=== PATIENT | female | born 1960 | race Caucasian/White ===

== ENCOUNTER 2018-04-08 18:56 | Inpatient (IN) | payer MEDICAID ==
[~2018-04-08] VITALS: Ht 165.1 cm; Wt 101.3 kg
[2018-04-08 19:09] VITALS: BP 186/85; PULSE 69; RESP 20; TEMP 98.5; O2SAT 100
--- NOTE | 2018-04-08 19:23 | PD ---
HPI Chief Complaint: Skin Problem Time Seen by Provider: 19:17 Travel History International Travel<30 days: No Contact w/Intl Traveler<30days: No Traveled to known affect area: No History of Present Illness HPI 58-year-old female presents for evaluation of painful wounds bilateral lower extremities. She reports that 8 months ago she remembers being bit by ants on her right lower leg. Shortly thereafter she developed similar symptoms in her left lower extremity. She reports that she was seen at [place] emergency room once in October and once in November and was prescribed antibiotics both times with minimal change in her symptoms. Her symptoms have persisted and worsened and this is what prompted evaluation today. She does not have a primary care physician. Denies fevers, chills, vomiting, abdominal pain, numbness or tingling or weakness. No other complaints. PFSH Past Medical History Anemia: Yes Coronary Artery Disease: Yes Diminished Hearing: No Tetanus Vaccination: Unknown Influenza Vaccination: No ?: Not LMP: menapause Past Surgical History Section: Yes Social History Alcohol Use: No Tobacco Use: No Substance Use: No Allergies-Medications (Allergen,Severity, Reaction): Coded Allergies: No Known Allergies (Unverified , 04/08/18) Reported Meds & Prescriptions Reported Meds & Active Scripts Active No Active Prescriptions or Reported Medications Review of Systems Except as stated in HPI: all other systems reviewed are Neg Physical Exam Narrative GENERAL: Well-developed well-nourished female no acute distress SKIN: Warm and dry. Patient has large foul-smelling ulcerations to the pretibial regions bilaterally. There is some surrounding cellulitic changes and some purulent drainage. HEAD: Atraumatic. Normocephalic. EYES: Pupils equal and round. No scleral icterus. No injection or drainage. ENT: No nasal bleeding or discharge. Mucous membranes pink and moist. NECK: Trachea midline. No JVD. CARDIOVASCULAR: Regular rate and rhythm. No murmur appreciated. RESPIRATORY: No accessory muscle use. Clear to auscultation. Breath sounds equal bilaterally. GASTROINTESTINAL: Abdomen soft, non-tender, nondistended. Hepatic and splenic margins not palpable. MUSCULOSKELETAL: Skin as noted above with 1-2+ tibial edema bilaterally. 2+ dorsalis pedis pulse bilaterally. There is no proximal streaking. There is no inguinal lymphadenopathy. NEUROLOGICAL: Awake and alert. No obvious cranial nerve deficits. Motor grossly within normal limits. Normal speech. Data Data Last Documented VS Vital Signs Date Time Temp Pulse Resp B/P (MAP) Pulse Ox O2 Delivery O2 Flow Rate FiO2 04/08/18 19:29 70 20 04/08/18 19:09 98.5 186/85 (118) 100 Orders Orders Sepsis Workup Initiated (04/08/18 ) Complete Blood Count With Diff (04/08/18 19:28) Comprehensive Metabolic Panel (04/08/18 19:) Lactic Acid Sepsis Protocol (04/08/18 19:) Blood Culture (04/08/18 19:28) Wound Culture And Gram Stain (04/08/18 19:28) Blood Glucose (04/08/18:) Ecg Monitoring (04/08/18:) Iv Access Insert/Monitor (04/08/18:) Oximetry (04/08/18:) Oxygen Administration (04/08/18:28) Tibia/Fibula (Ap/Lat) (04/08/18 ) Tibia/Fibula (Ap/Lat) (04/08/18 ) Us Leg Venous Doppler Bilat (04/08/18 19:28) Vancomycin Inj (Vancomycin Inj) (04/08/18 19:30) Piperacil-Tazo 3.375 Gm Premix (Zosyn 3. (04/08/18 19:30) Sodium Chlor 0.9% 1000 Ml Inj (Ns 1000 M (04/08/18 19:28) Admit Order (Ed Use Only) (04/08/18 20:38) Labs Laboratory Tests Test 04/08/18 19:35 White Blood Count 8.0 TH/MM3 Red Blood Count 4.46 MIL/MM3 Hemoglobin 11.4 GM/DL Hematocrit 34.6 % Mean Corpuscular Volume 77.6 FL Mean Corpuscular Hemoglobin 25.5 PG Mean Corpuscular Hemoglobin Concent 32.8 % Red Cell Distribution Width 13.8 % Platelet Count 343 TH/MM3 Mean Platelet Volume 6.3 FL Neutrophils (%) (Auto) 54.1 % Lymphocytes (%) (Auto) 36.3 % Monocytes (%) (Auto) 7.9 % Eosinophils (%) (Auto) 1.1 % Basophils (%) (Auto) 0.6 % Neutrophils # (Auto) 4.3 TH/MM3 Lymphocytes # (Auto) 2.9 TH/MM3 Monocytes # (Auto) 0.6 TH/MM3 Eosinophils # (Auto) 0.1 TH/MM3 Basophils # (Auto) 0.0 TH/MM3 CBC Comment DIFF FINAL Differential Comment Blood Urea Nitrogen 9 MG/DL Creatinine 0.98 MG/DL Random Glucose 90 MG/DL Total Protein 7.6 GM/DL Albumin 3.7 GM/DL Calcium Level 9.1 MG/DL Alkaline Phosphatase 92 U/L Aspartate Amino Transf (AST/SGOT) 12 U/L Alanine Aminotransferase (ALT/SGPT) 17 U/L Total Bilirubin 0.4 MG/DL Sodium Level 140 MEQ/L Potassium Level 4.0 MEQ/L Chloride Level 102 MEQ/L Carbon Dioxide Level 29.7 MEQ/L Anion Gap 8 MEQ/L Estimat Glomerular Filtration Rate 58 ML/MIN Lactic Acid Level 0.3 mmol/L [facility] Medical Decision Making Medical Screen Exam Complete: Yes Emergency Medical Condition: Yes Medical Record Reviewed: Yes Differential Diagnosis Venous stasis ulcers versus osteomyelitis versus cellulitis versus erythema nodosum Narrative Course Patient has large foul-smelling deep ulcerations to the pretibial region bilaterally with surrounding cellulitic changes and purulent foul-smelling drainage. Plan is for lab work, bilateral tibia-fibula x-ray, ultrasound, blood cultures, wound cultures. Broad-spectrum antibiotics initiated. X-ray of the right leg reveals CONCLUSION: Appearance worrisome for soft tissue and bony infection in the distal right leg Lab work is reassuring. Given the infected state of the ulcerations, x-ray findings, plan is to admit the patient for IV antibiotics and further evaluation. Diagnosis Primary Impression: Infected ulcer of skin Additional Impression: Cellulitis Admitting Information Admitting Physician Requests: Admit Scripts No Active Prescriptions or Reported Meds Ezra Corbett April 08, 2018 19:23
[2018-04-08] MEDS ORDERED: SODIUM CHLOR 0.9% 1000 ML INJ 1,000 ML IV SCH (19:28)
[2018-04-08] MEDS ORDERED: PIPERACIL-TAZO 3.375 GM PREMIX 50 ML IV ONE (19:30)
[2018-04-08] MEDS ORDERED: VANCOMYCIN INJ 1,000 MG in SODIUM CHLOR 0.9% 250 ML INJ 250 ML IV ONE (19:30)
[2018-04-08 19:51] LABS: AUTOMATED NEUTROPHIL # 4.3 TH/MM3 (1.8-7.7); BASOPHIL % 0.6 % (0.0-2.0); EOSINOPHIL # 0.1 TH/MM3 (0-0.4); EOSINOPHIL % 1.1 % (0.0-4.0); HEMATOCRIT 34.6 % (35.0-46.0); HEMOGLOBIN 11.4 GM/DL (11.6-15.3); LYMPH % 36.3 % (9.0-44.0); LYMPHOCYTE # 2.9 TH/MM3 (1.0-4.8); MEAN CELL VOLUME 77.6 FL (80.0-100.0); MEAN CORPUSCULAR HEMOGLOBIN 25.5 PG (27.0-34.0); MEAN CORPUSCULAR HGB CONC 32.8 % (32.0-36.0); MEAN PLATELET VOLUME 6.3 FL (7.0-11.0); MONO % 7.9 % (0.0-8.0); MONOCYTE # 0.6 TH/MM3 (0-0.9); NEUT % 54.1 % (16.0-70.0); PLATELET COUNT 343 TH/MM3 (150-450); RED BLOOD COUNT 4.46 MIL/MM3 (4.00-5.30); RED CELL DISTRIBUTION WIDTH 13.8 % (11.6-17.2)
--- NOTE | 2018-04-08 20:00 | RADRPT ---
EXAM DATE/TIME: 04/08/2018 19:35 [facility] COMPARISON: No previous studies available for comparison. INDICATIONS : Left tibia infection, lower leg region. MEDICAL HISTORY : None. SURGICAL HISTORY : None. ENCOUNTER: Initial ACUITY: 7 - 11 months PAIN SCORE: 6/10 LOCATION: Left distal tibia. FINDINGS: There is soft tissue swelling and ulceration involving the distal anterior and lateral matthew. Prominen t diffuse soft tissue swelling. The underlying bony elements are notable for plate and screw fixation of the distal fibula crossing the distal tibiofibular joint and screw fixation of the medial and pos terior malleolar. There is no evidence of cortical destruction or periosteal elevation. No evidence o f fracture. CONCLUSION: Soft tissue findings. No definite acute bony findings Fercho Vickers MD on April 08, 2018 at 19:54 Board Certified Radiologist. This report was verified electronically.
--- NOTE | 2018-04-08 20:07 | PD ---
Physical Exam Narrative General: The patient is a well-developed well-nourished female in no acute distress. Head and Neck exam: Head is normocephalic atraumatic. Eyes: EOMI, pupils are equal round and reactive to light. Nose: Midline septum with pink mucous membranes Mouth: Dentition unremarkable. Moist mucus membranes. Posterior oropharynx is not erythematous. No tonsillar hypertrophy. Uvula midline. Airway patent. Neck: No palpable lymphadenopathy. No nuchal rigidity. No thyromegaly. Cardiovascular: Regular rate and rhythm without murmurs, gallops, or rubs. No pulse deficit to the extremities on simultaneous auscultation and palpation of her radial artery. Lungs: Clear to auscultation bilaterally. No wheezes, rhonchi, or rales. Abdomen: Soft, without tenderness to palpation in all 4 quadrants of the abdomen. No guarding, rebound, or rigidity. Normal bowel sounds are audible. No tenderness on palpation of McBurney's point. Extremities: No clubbing or cyanosis. The patient has 2+ pitting edema bilateral lower extremities. 2+ pulses in all 4 extremities. The patient on examination of bilateral lower extremities has areas of ulceration with heaped up dried drainage at the borders. Wound culture was done of some of the drainage. There is a foul odor to the wounds. Back: No costovertebral angle tenderness to palpation. Neurologic Exam: Grossly nonfocal Skin Exam: No other rash noted. Intact skin that is warm and dry. Data Data Last Documented VS Vital Signs Date Time Temp Pulse Resp B/P (MAP) Pulse Ox O2 Delivery O2 Flow Rate FiO2 04/08/18 19:29 70 20 04/08/18 19:09 98.5 186/85 (118) 100 Orders Orders Sepsis Workup Initiated (04/08/18 ) Complete Blood Count With Diff (04/08/18 19:28) Comprehensive Metabolic Panel (04/08/18 19:28) Lactic Acid Sepsis Protocol (04/08/18 19:) Blood Culture (04/08/18 19:28) Wound Culture And Gram Stain (04/08/18 19:) Blood Glucose (04/08/18 19:28) Ecg Monitoring (04/08/18 19:) Iv Access Insert/Monitor (04/08/18 19:) Oximetry (04/08/18 19:28) Oxygen Administration (04/08/18 19:28) Tibia/Fibula (Ap/Lat) (04/08/18 ) Tibia/Fibula (Ap/Lat) (04/08/18 ) Us Leg Venous Doppler Bilat (04/08/18 19:28) Vancomycin Inj (Vancomycin Inj) (04/08/18 19:30) Piperacil-Tazo 3.375 Gm Premix (Zosyn 3. (04/08/18 19:30) Sodium Chlor 0.9% 1000 Ml Inj (Ns 1000 M (04/08/18 19:28) Admit Order (Ed Use Only) (04/08/18 20:38) Labs Laboratory Tests Test 04/08/18 19:35 White Blood Count 8.0 TH/MM3 Red Blood Count 4.46 MIL/MM3 Hemoglobin 11.4 GM/DL Hematocrit 34.6 % Mean Corpuscular Volume 77.6 FL Mean Corpuscular Hemoglobin 25.5 PG Mean Corpuscular Hemoglobin Concent 32.8 % Red Cell Distribution Width 13.8 % Platelet Count 343 TH/MM3 Mean Platelet Volume 6.3 FL Neutrophils (%) (Auto) 54.1 % Lymphocytes (%) (Auto) 36.3 % Monocytes (%) (Auto) 7.9 % Eosinophils (%) (Auto) 1.1 % Basophils (%) (Auto) 0.6 % Neutrophils # (Auto) 4.3 TH/MM3 Lymphocytes # (Auto) 2.9 TH/MM3 Monocytes # (Auto) 0.6 TH/MM3 Eosinophils # (Auto) 0.1 TH/MM3 Basophils # (Auto) 0.0 TH/MM3 CBC Comment DIFF FINAL Differential Comment Blood Urea Nitrogen 9 MG/DL Creatinine 0.98 MG/DL Random Glucose 90 MG/DL Total Protein 7.6 GM/DL Albumin 3.7 GM/DL Calcium Level 9.1 MG/DL Alkaline Phosphatase 92 U/L Aspartate Amino Transf (AST/SGOT) 12 U/L Alanine Aminotransferase (ALT/SGPT) 17 U/L Total Bilirubin 0.4 MG/DL Sodium Level 140 MEQ/L Potassium Level 4.0 MEQ/L Chloride Level 102 MEQ/L Carbon Dioxide Level 29.7 MEQ/L Anion Gap 8 MEQ/L Estimat Glomerular Filtration Rate 58 ML/MIN Lactic Acid Level 0.3 mmol/L [facility] Medical Record Reviewed: Yes Supervised Visit with NICOLE: Yes Narrative Course I, Dr. Eaton, have reviewed the advance practice practitioner's documentation and am in agreement, met with the patient face to face, made the diagnosis, and the medical decision making was done by me. The patient was initially evaluated by Ezra, the physician assistant speech language pathologist. Please see their complete history and physical. *My assessment and Findings: The patient presents with a reported history of 8 months ago being bitten by ants on the right anterior matthew. She reports that subsequent to that she developed a wound on the right matthew in October and then a wound on the left matthew shortly thereafter followed by a month. She reports that she had drainage from the sites. She was treated with antibiotic in October and then again in November without any improvement. She denies having a primary care physician. She was told to follow-up with wound care, however she was not able to find a wound care doctor that accepted her insurance. During the course of the patient's emergency department visit, the patient's history, examination, and differential diagnosis were reviewed with the patient. The patient was placed on a monitoring analyst with oximetry and frequent blood pressure monitoring. The patient had IV access obtained and blood work sent for analysis. The patient was initially provided normal saline IV fluids, Zosyn and vancomycin for broad-spectrum antibiotic coverage. The patient's laboratory studies were reviewed and remarkable for a white count of 8, hemoglobin 11.4, platelets 343 with a normal differential, CMP is remarkable for a GFR of 58, AST 12, lactic acid 0.3. Radiology studies were reviewed and remarkable for Last Impressions Lower Extremity Ultrasound 04/08/18 192 Signed Impressions: Service Date/Time: Sunday, April 08, 2018 20:15 - CONCLUSION: Normal examination. Fercho Vickers MD Tibia/Fibula X-Ray 04/08/18 0000 Signed Impressions: Service Date/Time: Sunday, April 08, 2018 19:35 - CONCLUSION: Soft tissue findings. No definite acute bony findings Fercho Vickers MD Tibia/Fibula X-Ray 04/08/18 0000 Signed Impressions: Service Date/Time: Sunday, April 08, 2018 19:37 - CONCLUSION: Appearance worrisome for soft tissue and bony infection in the distal right leg Fercho Vickers MD The patient's results were discussed with the patient, including the plan of care. I explained that further testing and/ or monitoring is indicated based on the patient's history, examination, and/ or laboratory findings. Therefore, I recommended admission for additional evaluation. The patient expressed understanding and was agreeable with this plan. The patient was admitted to the hospital in stable condition and [facility] Diagnosis Primary Impression: Infected ulcer of skin Qualified Codes: L98.499 - Non-pressure chronic ulcer of skin of other sites with unspecified severity; L08.9 - Local infection of the skin and subcutaneous tissue, unspecified Admitting Information Admitting Physician Requests: Admit Scripts No Active Prescriptions or Reported Meds Natalia Eaton MD April 08, 2018 20:07
[2018-04-08 20:11] LABS: ALBUMIN 3.7 GM/DL (3.4-5.0); AST (GOT) 12 U/L (15-37); BICARBONATE 29.7 MEQ/L (21.0-32.0); BLOOD UREA NITROGEN 9 MG/DL (7-18); CALCIUM 9.1 MG/DL (8.5-10.1); CHLORIDE 102 MEQ/L (98-107); CREATININE 0.98 MG/DL (0.50-1.00); GLOMERULAR FILTRATION RATE 58 ML/MIN (>89); GLUCOSE,RANDOM 90 MG/DL (74-106); SODIUM (NA) 140 MEQ/L (136-145)
[2018-04-08 20:12] LABS: ALT (GPT) 17 U/L (10-53)
[2018-04-08 20:14] LABS: ALKALINE PHOSPHATASE 92 U/L (45-117); TOTAL BILIRUBIN ADULT 0.4 MG/DL (0.2-1.0); TOTAL PROTEIN 7.6 GM/DL (6.4-8.2)
--- NOTE | 2018-04-08 20:38 | RADRPT ---
EXAM DATE/TIME: 04/08/2018 19:37 [facility] COMPARISON: No previous studies available for comparison. INDICATIONS : Right tibia infection, lower region. MEDICAL HISTORY : None. SURGICAL HISTORY : None. ENCOUNTER: Initial ACUITY: 7 - 11 months PAIN SCORE: 6/10 LOCATION: Right distal tibia. FINDINGS: There is soft tissue swelling and irregularity involving the medial distal matthew region. The underlyin g tibia is notable for mild undulating periosteal reaction. The appearance would be worrisome for sof t tissue infection and underlying osteomyelitis. There is no alice cortical destruction. No evidence of fracture. Visualized knee and ankle are atraumatic in appearance. There appear to be osteochondral defects involving the femoral condyles. CONCLUSION: Appearance worrisome for soft tissue and bony infection in the distal right leg Fercho Vickers MD on April 08, 2018 at 20:34 Board Certified Radiologist. This report was verified electronically.
[2018-04-08] MEDS ORDERED: ACETAMINOPHEN 325 MG TAB PO PRN (21:00)
[2018-04-08] MEDS ORDERED: Vancomycin Consult Pharmacy 1 EA OTHER SCH (21:00)
--- NOTE | 2018-04-08 21:04 | HHI.HP ---
[facility] Physician No Primary Care Physician Admission Diagnosis Lower extremity infected ulcers, cellulitis Diagnoses: (1) Infected ulcer of skin Diagnosis: Principal Chief Complaint: wounds on both legs Travel History International Travel<30 Days: No Contact w/Intl Traveler <30 Da: No Traveled to Known Affected Are: No History of Present Illness patient is a 58 y/o female with no significant past medical history who presented to ER with wounds on both legs. she says that it started eight months ago with an ant-bite. it started as a ' small bump'. however it gradually got worse and bigger and got infected. she was treated twice with oral antibiotics that she received in ER without any significant improvement. she denies any fever, chills. however she has some pain to the site of the wounds. due to worsening condition she decided to come to ER. Review of Systems Constitutional: DENIES: Fever, Weight loss, Chills, Night Sweats Eyes: DENIES: Blurred vision, Diplopia, Vision loss, Double Vision Ears, nose, mouth, throat: DENIES: Tinnitus, Vertigo, Throat pain, Epistaxis Respiratory: DENIES: Apneas, Cough, Snoring, Wheezing, Hemoptysis, Sputum production, Shortness of breath Cardiovascular: DENIES: Chest pain, Palpitations, Syncope, Dyspnea on Exertion , PND, Lower Extremity Edema, Orthopnea, Claudication Gastrointestinal: DENIES: Abdominal pain, Black stools, Bloody stools, Constipation, Diarrhea, Nausea, Vomiting, Difficulty Swallowing, Anorexia Genitourinary: DENIES: Urinary frequency, Urgency, Hematuria, Dysuria Musculoskeletal: DENIES: Joint pain, Muscle aches, Stiffness, Joint Swelling Integumentary: DENIES: Rash Neurologic: DENIES: Abnormal gait, Headache, Localized weakness, Paresthesias, Seizures, Speech Problems, Tremor, Poor Balance Psychiatric: DENIES: Anxiety, Confusion, Mood changes, Depression, Hallucinations, Agitation, Suicidal Ideation, Homicidal Ideation, Delusions wound/ pain on both lower legs. Past Family Social History Past Medical History none reported. Past Surgical History . Reported Medications none reported. Allergies: Coded Allergies: No Known Allergies (Unverified , 04/08/18) Active Ordered Medications Inpatient Medications Piperacillin Sod/ Tazobactam Sod 50 ml @ 100 mls/hr ONCE ONCE IV ; Start 04/08 at 19:30; Stop 04/08/18 at 19:59; Status DC Sodium Chloride 1,000 ml @ 1,000 mls/hr Q1H IV Last administered on 04/08/18at 19:39; Start 04/08/18 at 19:28; Stop 04/08/18 at 20:27; Status DC Vancomycin HCl 1000 mg/Sodium Chloride 250 ml @ 250 mls/hr ONCE ONCE IV Last administered on 04/08/18at 19:39; Start 04/08/18 at 19:30; Stop 04/08/18 at 20:29 ; Status DC Family History not relevant to this admission. Social History no smoking or drinking. Physical Exam Vital Signs Vital Signs Date Time Temp Pulse Resp B/P (MAP) Pulse Ox O2 Delivery O2 Flow Rate FiO2 04/08/18 19:29 70 20 04/08/18 19:09 98.5 69 20 186/85 (118) 100 Physical Exam GENERAL: This is a well-nourished, well-developed patient, in no apparent distress. SKIN: large wounds noted on lower anterior shins- with minimal drainage. HEAD: Atraumatic. Normocephalic. No temporal or scalp tenderness. EYES: Pupils equal round and reactive. Extraocular motions intact. No scleral icterus. No injection or drainage. ENT: Nose without bleeding, purulent drainage or septal hematoma. Throat without erythema, tonsillar hypertrophy or exudate. Uvula midline. Airway patent. NECK: Trachea midline. No JVD or lymphadenopathy. Supple, nontender, no meningeal signs. CARDIOVASCULAR: Regular rate and rhythm without murmurs, gallops, or rubs. RESPIRATORY: Clear to auscultation. Breath sounds equal bilaterally. No wheezes , rales, or rhonchi. GASTROINTESTINAL: Abdomen soft, non-tender, nondistended. No hepato-splenomegaly , or palpable masses. No guarding. MUSCULOSKELETAL: Extremities without clubbing, cyanosis, or edema. No joint tenderness, effusion, or edema noted. No calf tenderness. Negative Homans sign bilaterally. NEUROLOGICAL: Awake and alert. Cranial nerves II through XII intact. Motor and sensory grossly within normal limits. Five out of 5 muscle strength in all muscle groups. Normal speech. Laboratory Laboratory Tests Test 04/08/18 19:35 White Blood Count 8.0 Red Blood Count 4.46 Hemoglobin 11.4 Hematocrit 34.6 Mean Corpuscular Volume 77.6 Mean Corpuscular Hemoglobin 25.5 Mean Corpuscular Hemoglobin Concent 32.8 Red Cell Distribution Width 13.8 Platelet Count 343 Mean Platelet Volume 6.3 Neutrophils (%) (Auto) 54.1 Lymphocytes (%) (Auto) 36.3 Monocytes (%) (Auto) 7.9 Eosinophils (%) (Auto) 1.1 Basophils (%) (Auto) 0.6 Neutrophils # (Auto) 4.3 Lymphocytes # (Auto) 2.9 Monocytes # (Auto) 0.6 Eosinophils # (Auto) 0.1 Basophils # (Auto) 0.0 CBC Comment DIFF FINAL Differential Comment Blood Urea Nitrogen 9 Creatinine 0.98 Random Glucose 90 Total Protein 7.6 Albumin 3.7 Calcium Level 9.1 Alkaline Phosphatase 92 Aspartate Amino Transf (AST/SGOT) 12 Alanine Aminotransferase (ALT/SGPT) 17 Total Bilirubin 0.4 Sodium Level 140 Potassium Level 4.0 Chloride Level 102 Carbon Dioxide Level 29.7 Anion Gap 8 Estimat Glomerular Filtration Rate 58 Lactic Acid Level 0.3 Date/Time Source Procedure Growth Status 04/08/18 19:35 Blood Peripheral Aerobic Blood Culture Pending Received 04/08/18 19:35 Blood Peripheral Anaerobic Blood Culture Pending Received 04/08/18 19:30 Wound Leg Gram Stain Pending Received 04/08/18 19:30 Wound Leg Wound Culture Pending Received Result Diagram: 04/08/[id number]/08/181934 Imaging Last Impressions Tibia/Fibula X-Ray 04/08/18 0000 Signed Impressions: Service Date/Time: Sunday, April 08, 2018 19:35 - CONCLUSION: Soft tissue findings. No definite acute bony findings MD Harry Solorzano VTE Risk Assessment Caprini VTE Risk Assessment: Mod/High Risk (score >= 2) Caprini Risk Assessment Model Point Value = 1 Point Value = 2 Point Value = 3 Point Value = 5 Age 41-60 Minor surgery BMI > 25 kg/m2 Swollen legs Varicose veins or History of unexplained or recurrent spontaneous Oral contraceptives or hormone replacement Sepsis (< 1 month) Serious lung disease, including pneumonia (< 1 month) Abnormal pulmonary function Acute myocardial infarction Congestive heart failure (< 1 month) History of inflammatory bowel disease Medical patient at bed rest Age 61-74 Arthroscopic surgery Major open surgery (> 45 min) Laparoscopic surgery (> 45 min) Malignancy Confined to bed (> 72 hours) Immobilizing plaster cast Central venous access Age >= 75 History of VTE Family history of VTE Factor V Leiden Prothrombin [id number] Lupus anticoagulant Anticardiolipin antibodies Elevated serum homocysteine Heparin-induced thrombocytopenia Other congenital or acquired thrombophilia Stroke (< 1 month) Elective arthroplasty Hip, pelvis, or leg fracture Acute spinal cord injury (< 1 month) Prophylaxis Regimen Total Risk Factor Score Risk Level Prophylaxis Regimen 0-1 Low Early ambulation 2 Moderate Order ONE of the following: *Sequential Compression Device (SCD) *Heparin 5000 units SQ BID 3-4 Higher Order ONE of the following medications: *Heparin 5000 units SQ TID *Enoxaparin/Lovenox 40 mg SQ daily (WT < 150 kg, CrCl > 30 mL/min) *Enoxaparin/Lovenox 30 mg SQ daily (WT < 150 kg, CrCl > 10-29 mL/min) *Enoxaparin/Lovenox 30 mg SQ BID (WT < 150 kg, CrCl > 30 mL/min) AND/OR *Sequential Compression Device (SCD) 5 or more Highest Order ONE of the following medications: *Heparin 5000 units SQ TID (Preferred with Epidurals) *Enoxaparin/Lovenox 40 mg SQ daily (WT < 150 kg, CrCl > 30 mL/min) *Enoxaparin/Lovenox 30 mg SQ daily (WT < 150 kg, CrCl > 10-29 mL/min) *Enoxaparin/Lovenox 30 mg SQ BID (WT < 150 kg, CrCl > 30 mL/min) AND *Sequential Compression Device (SCD) Assessment and Plan Assessment and Plan A/P - infected wounds- both legs- was treated with oral antibiotics twice without any significant improvement continue with broad-spectrum IV antibiotics- consult ID and wound care- continue with pain control. follow the XR's and cultures. -anemia- likely due to chronic disease- monitor H/H -DVT prophylaxis with subq Lovenox Discussed Condition With ER and the patient. Physician Certification 2 Midnight Certification Type: Admission for Inpatient Services Order for Inpatient Services The services are ordered in accordance with Medicare regulations or non- Medicare payer requirements, as applicable. In the case of services not specified as inpatient-only, they are appropriately provided as inpatient services in accordance with the 2-midnight benchmark. Estimated LOS (days): 2 days is the estimated time the patient will need to remain in the hospital, assuming treatment plan goals are met and no additional complications. Post-Hospital Plan: Home Erika Morley MD April 08, 2018 21:04
[2018-04-08] MEDS ORDERED: ONDANSETRON ODT 4 MG TAB PO PRN (21:15)
--- NOTE | 2018-04-08 21:24 | RADRPT ---
EXAM DATE/TIME: 04/08/2018 20:15 [facility] COMPARISON: No previous studies available for comparison. INDICATIONS : Bilateral leg pain. MEDICAL HISTORY : Coronary artery disease. Anemia. SURGICAL HISTORY : section. Left leg rogelio placement. ENCOUNTER: Initial ACUITY: 4 - 6 months PAIN SCORE: 4/10 LOCATION: Bilateral legs. TECHNIQUE: Venous ultrasound of the left and right leg was performed from the inguinal ligament to the proximal calf. Real-time, color Doppler and spectral tracing, compression and augmentation techniques were us ed. FINDINGS: RIGHT LEG: There is normal compressibility of the deep venous system from the inguinal region to the proximal ca lf. No echogenic clot is seen in the lumen of the common femoral, femoral, popliteal, and posterior tibial veins. There is a normal response of the venous system to proximal and distal augmentation an d respiration. LEFT LEG: There is normal compressibility of the deep venous system from the inguinal region to the proximal ca lf. No echogenic clot is seen in the lumen of the common femoral, femoral, popliteal, and posterior tibial veins. There is a normal response of the venous system to proximal and distal augmentation an d respiration. CONCLUSION: Normal examination. Fercho Vickers MD on April 08, 2018 at 21:21 Board Certified Radiologist. This report was verified electronically.
[2018-04-08 21:45] VITALS: BP 160/72; PULSE 64; RESP 15; TEMP 98.1; O2SAT 99
[2018-04-08] MEDS ORDERED: VANCOMYCIN 1,000 MG/NS 250 ML IV ONE ×2 (23:00)
[2018-04-08] MEDS: KETOROLAC TROMETHAMINE 30 MG/ML (IVP) VIAL IV PUSH PRN (23:38)
[2018-04-09] VITALS (7 sets, daily range): BP systolic 117–146; BP diastolic 58–67; PULSE 55–68; RESP 16–17; TEMP 97.3–98.2; O2SAT 97–100
[2018-04-09] MEDS: PIPERACIL-TAZO 3.375 GM PREMIX 50 ML IV SCH ×4 (01:48→21:03)
[2018-04-09 08:14] LABS: BASOPHIL % 0.6 % (0.0-2.0); EOSINOPHIL # 0.1 TH/MM3 (0-0.4); EOSINOPHIL % 1.1 % (0.0-4.0); HEMATOCRIT 34.7 % (35.0-46.0); HEMOGLOBIN 11.3 GM/DL (11.6-15.3); LYMPH % 25.8 % (9.0-44.0); LYMPHOCYTE # 1.6 TH/MM3 (1.0-4.8); MEAN CELL VOLUME 78.5 FL (80.0-100.0); MEAN CORPUSCULAR HEMOGLOBIN 25.6 PG (27.0-34.0); MEAN CORPUSCULAR HGB CONC 32.6 % (32.0-36.0); MEAN PLATELET VOLUME 6.3 FL (7.0-11.0); MONOCYTE # 0.4 TH/MM3 (0-0.9); NEUT % 65.5 % (16.0-70.0); PLATELET COUNT 264 TH/MM3 (150-450); RED BLOOD COUNT 4.41 MIL/MM3 (4.00-5.30); RED CELL DISTRIBUTION WIDTH 13.6 % (11.6-17.2); WHITE BLOOD COUNT 6.1 TH/MM3 (4.0-11.0)
[2018-04-09 08:37] LABS: WESTERGREN SEDIMENTATION RATE 32 mm/hr (0-30)
[2018-04-09] MEDS: ENOXAPARIN SODIUM 40 MG/0.4 ML SYRINGE SQ SCH (08:46)
--- NOTE | 2018-04-09 08:47 | PD.ID.CON ---
History of Present Illness Service Infectious disease Consult Requested By Hospitalist service Reason for Consult Evaluation and management of bilateral leg wounds Primary Care Physician No Primary Care Physician Diagnoses: History of Present Illness Patient seen and examined on behalf of Dr. Georges This is a very pleasant 58-year-old Spanish female who denies any significant past medical history and presented to [facility] ED with complaints of progressive bilateral lower extremity leg wounds 8 months. Patient states that 8 months ago she was bitten by ants on the right lower leg and began to develop an infection. Shortly thereafter, she developed similar wounds on the front of the lower left leg however she does not recall being bit by ants or having any other type of bite or injury. Patient states the both leg wounds have been progressive with increase in size and becoming more painful. Patient states she has been treated twice at [facility] in [place] in October and November with oral antibiotics the names of which she cannot recall without any significant improvement. Patient states she came in today because leg wounds have become so painful that her home use of ibuprofen is no longer giving her any relief. Patient denies any known history of immunocompromised state. She is not on any steroids. She denies any past medical history of diabetes. She denies any history of similar infections in the past. She denies any history of HIV or hepatitis. Infectious disease consultation has been requested for evaluation and management of bilateral leg wounds. Patient is seen and examined. She denies any other associated symptoms such as fever, chills, nausea, vomiting, chest pain, shortness of breath, abdominal pain, dysuria or diarrhea. Currently she is afebrile. Her white count is within normal limits. Blood cultures and wound cultures are pending. Bilateral lower extremity Dopplers were negative for DVT. X-ray of the right lower extremity revealed soft tissue swelling and a irregularity involving the medial distal matthew region with the underlying tibia notable for mild undulating periosteal reaction worrisome for underlying osteomyelitis. X-ray of the left lower extremity shows soft tissue findings no definite acute bony findings. She does have hardware in the lower extremity as a result of ORIF repair of ankle fracture. She is comfortable at present. She states that she decided to come in to the hospital at this time due to the fact that the leg wounds are becoming more painful and that her home use of ibuprofen is no longer giving her any relief. Patient denies any known history of immunocompromised state. She is not on any steroids. She denies any past medical history of diabetes. She denies any history of similar infections in the past. She denies any history of HIV or hepatitis. (Nieves Malik) Review of Systems Except as stated in HPI: all other systems reviewed are Neg (Nieves Malik) Past Family Social History Allergies: Coded Allergies: No Known Allergies (Unverified , 04/10/18) Past Medical History Patient denies any significant past medical history Past Surgical History Status post ORIF left ankle fracture Reported Medications No Active Prescriptions or Reported Medications Active Ordered Medications Current Medications Medications (Trade) Dose Ordered Sig/Darian Route Start Time Stop Time Status Last Admin Piperacillin Sod/ Tazobactam Sod 50 ml @ 100 mls/hr Q6H IV 04/09/18 02:00 04/09/18 01:48 Pharmacy Profile Note 0 ml @ 0 mls/hr UNSCH OTHER 04/08/18 21:00 (Tylenol) 650 mg Q4H PRN PO 04/08/18 21:00 (Lovenox Inj) 40 mg Q24H SQ 04/09/18 09:00 (Zofran Odt) 4 mg Q8HR PRN PO 04/08/18 21:15 (Toradol Inj) 15 mg Q6H PRN IV PUSH 04/08/18 23:15 04/13/18 23:14 04/08/18 23:38 Family History Diabetes and hypertension Social History Patient denies any tobacco use, alcohol consumption or illicit drug use. She lives with her children, 2 dogs and a cat. She is currently employed as a software reliability engineer. (Nieves Malik) Physical Exam Vital Signs Vital Signs Date Time Temp Pulse Resp B/P (MAP) Pulse Ox O2 Delivery O2 Flow Rate FiO2 04/09/18 04:00 97.5 61 16 139/60 (86) 97 04/09/18 04:00 Room Air 04/09/18 00:00 98.0 68 17 146/65 (92) 97 04/09/18 00:00 Room Air 04/08/18 21:45 98.1 64 15 160/72 (101) 99 04/08/18 19:29 70 20 04/08/18 19:09 98.5 69 20 186/85 (118) 100 Physical Exam GENERAL: This is a well-nourished, well-developed female patient, in no apparent distress. Awake and alert. SKIN: Warm and dry. + Bilateral large foul-smelling ulcerations over the pretibial areas with surrounding cellulitic changes and some purulent drainage with granulation tissue noted in wound beds R>L. Right ulceration is larger but also appears to be deeper. Tender to palpation. + Pruritic scaly rash over lower cleavage area. HEAD: Atraumatic. Normocephalic. No temporal or scalp tenderness. EYES: Pupils equal round and reactive. Extraocular motions intact. No scleral icterus. No injection or drainage. ENT: Nose without bleeding or purulent drainage. Throat without erythema, tonsillar hypertrophy or exudate. Uvula midline. Airway patent. NECK: Trachea midline. No lymphadenopathy. Supple, nontender, no meningeal signs. CARDIOVASCULAR: Regular rate and rhythm without murmurs, gallops, or rubs. RESPIRATORY: Clear to auscultation. Breath sounds equal bilaterally. No wheezes , rales, or rhonchi. GASTROINTESTINAL: Abdomen soft, non-tender, nondistended. No hepato-splenomegaly , or palpable masses. No guarding. MUSCULOSKELETAL: Extremities without clubbing, cyanosis, or edema. No joint tenderness, effusion, or edema noted. No calf tenderness. + Varicosities bilateral lower extremities. NEUROLOGICAL: Awake and alert. Cranial nerves II through XII grossly intact. Motor and sensory grossly within normal limits. No focal neurologic finding appreciated. Normal speech. PSYCHIATRIC: Appropriate mood and affect. Calm and pleasant. Cooperative with exam. PIV site with no evidence of infection Laboratory Laboratory Tests Test 04/08/18 19:35 04/09/18 05:44 04/09/18 07:55 White Blood Count 8.0 6.1 Red Blood Count 4.46 4.41 Hemoglobin 11.4 11.3 Hematocrit 34.6 34.7 Mean Corpuscular Volume 77.6 78.5 Mean Corpuscular Hemoglobin 25.5 25.6 Mean Corpuscular Hemoglobin Concent 32.8 32.6 Red Cell Distribution Width 13.8 13.6 Platelet Count 343 264 Mean Platelet Volume 6.3 6.3 Neutrophils (%) (Auto) 54.1 65.5 Lymphocytes (%) (Auto) 36.3 25.8 Monocytes (%) (Auto) 7.9 7.0 Eosinophils (%) (Auto) 1.1 1.1 Basophils (%) (Auto) 0.6 0.6 Neutrophils # (Auto) 4.3 4.0 Lymphocytes # (Auto) 2.9 1.6 Monocytes # (Auto) 0.6 0.4 Eosinophils # (Auto) 0.1 0.1 Basophils # (Auto) 0.0 0.0 CBC Comment DIFF FINAL DIFF FINAL Differential Comment Blood Urea Nitrogen 9 Creatinine 0.98 Random Glucose 90 Total Protein 7.6 Albumin 3.7 Calcium Level 9.1 Alkaline Phosphatase 92 Aspartate Amino Transf (AST/SGOT) 12 Alanine Aminotransferase (ALT/SGPT) 17 Total Bilirubin 0.4 Sodium Level 140 Potassium Level 4.0 Chloride Level 102 Carbon Dioxide Level 29.7 Anion Gap 8 Estimat Glomerular Filtration Rate 58 Lactic Acid Level 0.3 Date/Time Source Procedure Growth Status 04/08/18 19:35 Blood Peripheral Aerobic Blood Culture Pending Received 04/08/18 19:35 Blood Peripheral Anaerobic Blood Culture Pending Received 04/08/18 19:30 Wound Leg Gram Stain Pending Received 04/08/18 19:30 Wound Leg Wound Culture Pending Received (Nieves Malik) Result Diagram: 04/09/18 0755 04/08/18 1935 Imaging Last Impressions Lower Extremity Ultrasound 04/08/18 1928 Signed Impressions: Service Date/Time: Sunday, April 08, 2018 20:15 - CONCLUSION: Normal examination. Fercho Vickers MD Tibia/Fibula X-Ray 04/08/18 0000 Signed Impressions: Service Date/Time: Sunday, April 08, 2018 19:35 - CONCLUSION: Soft tissue findings. No definite acute bony findings Fercho Vickers MD (Nieves Malik) Assessment and Plan Assessment and Plan Bilateral lower extremity cellulitis with ulcerative wounds R>L with concern for underlying osteomyelitis right lower extremity Tinea corporis Anemia,mild Recommendations: Continue on IV Zosyn for now Follow-up on wound culture and blood culture results Consult podiatry for possible bone biopsy, appreciate assistance MRI the right lower extremity with and without for further evaluation of underlying osteomyelitis Obtain CRP and hemoglobin A1c Ketoconazole cream Monitor for clinical improvement Further recommendations to follow (Nieves Malik) Assessment and Plan The exam, history, and the medical decision-making described in the above note were completed with the assistance of the mid-level provider. I reviewed and agree with the findings presented. I attest that I had a [id number] encounter with the patient on the same day, and personally performed and documented my assessment and findings in the medical record. Wounds examined: bilateral ulcerations deep with foul smelling yellow discharge. Crusted lesions as well. Surrounding erythema and induration noted. Left foot with surgical scar intact and h/o hardware. MRI Rt foot negative. dw : he will examine and determine need for left foot imaging to r.o osteomyelitis in view of hardware. CT with bone scan? Needs debridement: please send routine cultures, AFB stain and Cx and Fungal stain and Cx Will follow along. (Shaunna Georges MD) Nieves Malik April 09, 2018 08:47 Shaunna Georges MD April 09, 2018 15:26
[2018-04-09] MEDS ORDERED: GADODIAMIDE PF 287 MG/ML 20 ML VIAL (for RAD MRI) IVCONTRAST ONE (10:21)
--- NOTE | 2018-04-09 11:16 | HHI.PR ---
Subjective Remarks Patient is very pleasant. Says she has pain in her legs Tylenol does not help. Also Toradol does not help either. Will start [place] p.o. No fever or chills overnight. No nausea vomiting no diarrhea or constipation. Plan for OR by Dr. Marlow tomorrow Objective Vitals Vital Signs Date Time Temp Pulse Resp B/P (MAP) Pulse Ox O2 Delivery O2 Flow Rate FiO2 04/09/18 08:04 97.4 62 17 135/65 (88) 99 04/09/18 08:00 99 Room Air 04/09/18 04:00 97.5 61 16 139/60 (86) 97 04/09/18 04:00 Room Air 04/09/18 00:00 98.0 68 17 146/65 (92) 97 04/09/18 00:00 Room Air 04/08/18 21:45 98.1 64 15 160/72 (101) 99 04/08/18 19:29 70 20 04/08/18 19:09 98.5 69 20 186/85 (118) 100 I/O 04/08/18 04/08/18 04/08/18 04/09/18 04/09/18 04/09/18 07:00 15:00 23:00 07:00 15:00 23:00 Intake Total 790 ml Balance 790 ml Intake Oral 240 ml IV Total 550 ml # Voids 2 Result Diagram: 04/09/18 0755 04/08/181934 Imaging Last Impressions Lower Extremity Ultrasound 04/08/188 Signed Impressions: Service Date/Time: Sunday, April 08, 2018 20:15 - CONCLUSION: Normal examination. Fercho Vickers MD Tibia/Fibula X-Ray 04/08/18 0000 Signed Impressions: Service Date/Time: Sunday, April 08, 2018 19:35 - CONCLUSION: Soft tissue findings. No definite acute bony findings Fercho Vickers MD Objective Remarks GENERAL: This is a well-nourished, well-developed patient, in no apparent distress. CARDIOVASCULAR: Regular rate and rhythm without murmurs, gallops, or rubs. RESPIRATORY: Clear to auscultation. Breath sounds equal bilaterally. No wheezes , rales, or rhonchi. GASTROINTESTINAL: Abdomen soft, non-tender, nondistended. No hepato-splenomegaly , or palpable masses. No guarding. MUSCULOSKELETAL: Extremities without clubbing, cyanosis, or edema. No joint tenderness, effusion, or edema noted. No calf tenderness. Negative Homans sign bilaterally. NEUROLOGICAL: Awake and alert. Cranial nerves II through XII intact. Motor and sensory grossly within normal limits. Five out of 5 muscle strength in all muscle groups. Normal speech. A/P Problem List: (1) Infected ulcer of skin ICD Code: L98.499 - Non-pressure chronic ulcer of skin of other sites with unspecified severity; L08.9 - Local infection of the skin and subcutaneous tissue, unspecified Status: Acute Assessment and Plan Infected wounds- both legs- was treated with oral antibiotics twice without any significant improvement continue with broad-spectrum IV antibiotics- consult ID and wound care- continue with pain control. follow the XR's and cultures. Seen by Dr. Marlow discussed with him for OR tomorrow Also seen by infectious disease, appreciate recommendations Add [place] for pain, continue ketorolac for breakthrough pain Anemia- likely due to chronic disease- monitor H/H DVT prophylaxis: Lovenox SQ Discussed Condition With nurse, patient. Bozena Chamberlain MD April 09, 2018 11:16
--- NOTE | 2018-04-09 11:20 | RADRPT ---
EXAM DATE/TIME: 04/09/2018 09:53 [facility] COMPARISON: TIBIA/FIBULA RIGHT (AP/LAT), April 08, 2018, 19:37. INDICATIONS : Right lower leg wound. CONTRAST: 20 cc Omniscan (gadodiamide) IV MEDICAL HISTORY : None. SURGICAL HISTORY : section. ORIF lt ankle ENCOUNTER: Subsequent ACUITY: 3 day PAIN SCORE: 3/10 LOCATION: Right lower leg TECHNIQUE: Multiplanar multisequence MRI examination of the lower leg was performed with and without contrast. FINDINGS: There is generalized soft tissue edema throughout the entire lower extremity below the knee worse at the ankle.. A soft tissue defect is present medial side just above the tibial plafond that does not extend through the fascia. There is no evidence for marrow edema to suggest osteomyelitis. However these apparent inflammatory changes do extend to the cortex of the distal tibia. Extensive viscosities are present in the leg suggesting venous stasis. CONCLUSION: Soft tissue wound with extensive cellulitis or varicosities. Laboratory changes do extend to the cor tical surface of the distal tibia. Careful followup is suggested to exclude developing osteomyelitis .. Derek Zepeda MD FACR on April 09, 2018 at 11:13 Board Certified Radiologist. This report was verified electronically.
[2018-04-09] MEDS: KETOROLAC TROMETHAMINE 30 MG/ML (IVP) VIAL IV PUSH PRN ×2 (12:22→17:43)
[2018-04-09] MEDS: VANCOMYCIN INJ 1,500 MG in SODIUM CHLORID 0.9% 500 ML INJ 500 ML IV SCH (12:22)
[2018-04-09] MEDS: ACETAMINOPHEN/HYDROcodone 325 MG/5 MG TAB PO PRN ×2 (16:32→21:04)
[2018-04-09 16:38] LABS: HEMOGLOBIN A1C 6.3 % (4.3-6.0)
--- NOTE | 2018-04-09 17:09 | PD.WCN.NOT ---
Wound Consult Additional Information: Patient not seen for wound management of bilateral legs.Podiatry, Doctor Ele consulted for Bilateral lower leg wound infections. Please defer to his orders regarding Bilateral lower leg wounds. Geena Llanos [facility] April 09, 2018 17:09
--- NOTE | 2018-04-09 17:49 | MB ---
cc: Kin Marlow Davion DPM Kin Marlow DPM DATE: 04/09/2018 REASON FOR CONSULTATION: Bilateral lower extremity ulcers of legs. HISTORY OF PRESENT ILLNESS: This is a pleasant 58-year-old female seen bedside with her family. She has a minimum 2-3 month history of draining, infected lesions of her legs, but they have become significantly worse. She has been going to the ER. She has been given oral antibiotics at least twice; however, she is having problems finding people that take her insurance to care for her more long-term. She admits that it may have started with an insect injury of some kind. No primary care doctor is noted. PAST MEDICAL HISTORY: Cellulitis, edema PAST SURGICAL HISTORY: . OUTPATIENT MEDICATIONS: Antibiotics, unspecified. INPATIENT MEDICATIONS: Antibiotic Zosyn and vancomycin. SOCIAL HISTORY: Nonsmoker. No drinking. PHYSICAL EXAMINATION: VITAL SIGNS: Temperature is 97.9, pulse rate 60, respiratory rate 17, blood pressure 139/61. She is sating 100% on room air. GENERAL: Alert and oriented female seen at bedside exhibiting nonlabored respirations. Bilateral lower extremities are examined EXTREMITIES: Bilateral lower extremities are examined. There is noted to be yellow, crusted fibrotic lesions wound periphery with mixed fibrotic granular base of the bilateral distal calves with peripheral edema, erythema. There is a foul odor. It does not probe deep. Specifically, on the lateral aspect of the patient's left ankle it does not appear to involve the incisions from a previous ORIF. The right medial distal tibia is palpated. There is mild pain, but the ulcers still remain shallow involving likely only the dermis, may be down to fascia, but definitely no bone exposed. The patient is able for range of motion of the feet and ankles. Pedal pulses are palpable. Sensation appears to be intact to light touch and deep pressure. Wound measurements approximately 5 x 4 cm bilateral. LABORATORY DATA: White blood cells 6.1, hemoglobin and hematocrit 11 and 34, platelet count is 264. Chem-7: Sodium 140, potassium 4.0, chloride 102, CO2 of 29.7, BUN 9. Random glucose is 90. IMAGING FINDINGS: Lower extremity ultrasound: Normal. No signs of DVT. MRI reviewed. I appreciate the radiologist mention of possible medial distal tibial periosteal reaction; however, it does not clinically correlate. I do not think the patient has any osteomyelitis. The left lower extremity x-ray shows intact hardware within the medial malleolus, the distal anterior tibia and the lateral distal fibula. All screws appear to be within normal limits without any obvious signs of loosening. No radiolucency seen. No signs of osteomyelitis or gas within the tissue. Other than increased soft tissue envelope, normal x-rays with hardware in place, status post ORIF. ASSESSMENT AND PLAN: Bilateral lower extremity cellulitis, infection, expansile ulcers with likely venous insufficiency. The plan is to move forward with incision, drainage and debridement. I did review case with Dr. Georges and I do feel that the hardware is without any infection as well as the distal tibia. The patient will need supportive care arrangement for [facility] evaluation and possible vein surgeon at a later date. I will see the patient tomorrow for surgical debridement. She is ordered n.p.o. Risks and benefits explained. JUNE Tanner/ , 05:28 PM , 05:48 PM
[2018-04-10] MEDS: KETOROLAC TROMETHAMINE 30 MG/ML (IVP) VIAL IV PUSH PRN ×3 (00:32→23:54)
[2018-04-10] MEDS: PIPERACIL-TAZO 3.375 GM PREMIX 50 ML IV SCH ×4 (02:40→20:49)
[2018-04-10 04:20] VITALS: BP 128/60; PULSE 61; RESP 16; TEMP 97.3; O2SAT 98
[2018-04-10] MEDS: ACETAMINOPHEN/HYDROcodone 325 MG/5 MG TAB PO PRN ×3 (04:42→20:50)
[2018-04-10] MEDS: VANCOMYCIN INJ 1,500 MG in SODIUM CHLORID 0.9% 500 ML INJ 500 ML IV SCH ×2 (04:54→23:55)
[2018-04-10] MEDS ORDERED: POVIDONE IODINE 5% (ANTISEPSIS KIT) 4 APPLICATIONS EACH NARE PRN (05:30)
[2018-04-10] MEDS ORDERED: METOPROLOL TARTRATE 25 MG TAB PO PRN (05:30)
[2018-04-10] MEDS ORDERED: LACTATED RINGER'S 1000 ML IV PRN (05:30)
[2018-04-10] MEDS ORDERED: CHLORHEXIDINE GLUCONATE 2 % 1 PACK (2 CLOTHS) TOPICAL PRN (05:30)
[2018-04-10] MEDS ORDERED: SODIUM CHLORID 0.9% 500 ML IV PRN (05:30)
[2018-04-10] MEDS ORDERED: Vancomycin Consult Pharmacy 1 EA OTHER SCH (06:30)
[2018-04-10 07:17] LABS: AUTOMATED NEUTROPHIL # 2.7 TH/MM3 (1.8-7.7); BASOPHIL # 0.1 TH/MM3 (0-0.2); EOSINOPHIL # 0.1 TH/MM3 (0-0.4); EOSINOPHIL % 1.9 % (0.0-4.0); HEMATOCRIT 30.5 % (35.0-46.0); HEMOGLOBIN 9.9 GM/DL (11.6-15.3); LYMPH % 43.7 % (9.0-44.0); LYMPHOCYTE # 2.6 TH/MM3 (1.0-4.8); MEAN CELL VOLUME 78.3 FL (80.0-100.0); MEAN CORPUSCULAR HEMOGLOBIN 25.6 PG (27.0-34.0); MEAN CORPUSCULAR HGB CONC 32.7 % (32.0-36.0); MEAN PLATELET VOLUME 7.3 FL (7.0-11.0); MONO % 7.8 % (0.0-8.0); MONOCYTE # 0.5 TH/MM3 (0-0.9); NEUT % 45.6 % (16.0-70.0); PLATELET COUNT 197 TH/MM3 (150-450); RED BLOOD COUNT 3.89 MIL/MM3 (4.00-5.30); RED CELL DISTRIBUTION WIDTH 13.9 % (11.6-17.2)
[2018-04-10 07:26] LABS: PROTHROMBIN TIME - PATIENT 10.4 SEC (9.8-11.6)
[2018-04-10 07:40] LABS: BICARBONATE 29.6 MEQ/L (21.0-32.0); CALCIUM 8.4 MG/DL (8.5-10.1); CREATININE 1.05 MG/DL (0.50-1.00)
[2018-04-10 08:01] VITALS: BP 118/57; PULSE 50; RESP 17; TEMP 97.4; O2SAT 98
--- NOTE | 2018-04-10 08:24 | HHI.PR ---
Subjective Remarks Says pain in her legs is better controlled by eds.No n/v/d/c. Denies chest pain or sob. Objective Vitals Vital Signs Date Time Temp Pulse Resp B/P (MAP) Pulse Ox O2 Delivery O2 Flow Rate FiO2 04/10/18 05:59 Room Air 04/10/18 04:20 97.3 61 16 128/60 (82) 98 04/09/18 23:50 98.2 55 16 117/58 (77) 97 04/09/18 21:20 Room Air 04/09/18 21:12 97.3 58 16 125/58 (80) 97 04/09/18 17:29 100 Room Air 04/09/18 16:04 97.9 63 17 139/61 (87) 100 04/09/18 12:04 97.5 60 17 127/67 (87) 98 04/09/18 12:00 98 Room Air I/O 04/09/18 04/09/18 04/09/18 04/10/18 04/10/18 04/10/18 07:00 15:00 23:00 07:00 15:00 23:00 Intake Total 790 ml 770 ml 240 ml Output Total 300 ml Balance 790 ml 770 ml -60 ml Intake Oral 240 ml 720 ml 240 ml IV Total 550 ml 50 ml Output Urine Total 300 ml # Voids 2 3 # Bowel Movements 0 0 Result Diagram: 04/10/18 0642 04/10/18 0642 Imaging Last Impressions Lower Extremity MRI 04/09/18 0000 Signed Impressions: Service Date/Time: Monday, April 09, 2018 09:53 - CONCLUSION: Soft tissue wound with extensive cellulitis or varicosities. Laboratory changes do extend to the cortical surface of the distal tibia. Careful followup is suggested to exclude developing osteomyelitis.. Derek Zepeda MD FACR Lower Extremity Ultrasound 04/08/181927 Signed Impressions: Service Date/Time: Sunday, April 08, 2018 20:15 - CONCLUSION: Normal examination. Fercho Vickers MD Tibia/Fibula X-Ray 04/08/18 0000 Signed Impressions: Service Date/Time: Sunday, April 08, 2018 19:35 - CONCLUSION: Soft tissue findings. No definite acute bony findings Fercho Vickers MD Objective Remarks GENERAL: This is a well-nourished, well-developed patient, in no apparent distress. CARDIOVASCULAR: Regular rate and rhythm without murmurs, gallops, or rubs. RESPIRATORY: Clear to auscultation. Breath sounds equal bilaterally. No wheezes , rales, or rhonchi. GASTROINTESTINAL: Abdomen soft, non-tender, nondistended. No hepato-splenomegaly , or palpable masses. No guarding. MUSCULOSKELETAL: Extremities without clubbing, cyanosis, or edema. No joint tenderness, effusion, or edema noted. No calf tenderness. Negative Homans sign bilaterally. NEUROLOGICAL: Awake and alert. Cranial nerves II through XII intact. Motor and sensory grossly within normal limits. Five out of 5 muscle strength in all muscle groups. Normal speech. A/P Problem List: (1) Infected ulcer of skin ICD Code: L98.499 - Non-pressure chronic ulcer of skin of other sites with unspecified severity; L08.9 - Local infection of the skin and subcutaneous tissue, unspecified Status: Acute Assessment and Plan Infected wounds- bilateral legs- was treated with oral antibiotics twice without any significant improvement Continue IV antibiotics- consult ID and wound care- continue with pain control. Follow cultures. Seen by Dr. Marlow discussed with him, patient is scheduled for OR 04/10 for debridement Also seen by infectious disease, appreciate recommendations [place] for pain, continue ketorolac for breakthrough pain Anemia- likely due to chronic disease- monitor H/H, transfuse of HGB < 7 or if symptomatic DVT prophylaxis: Lovenox SQ Discussed Condition With nurse, patient. Bozena Chamberlain MD April 10, 2018 08:24
[2018-04-10 08:27] LABS: OVALOCYTES 1+ (NORMAL)
[2018-04-10] MEDS: ENOXAPARIN SODIUM 40 MG/0.4 ML SYRINGE SQ SCH (09:05)
[2018-04-10] MEDS: KETOCONAZOLE 2% CREAM 15 GM TOPICAL SCH (09:05)
[2018-04-10] MEDS ORDERED: ONDANSETRON HCL 4 MG/2 ML VIAL IV PUSH ONE (12:00)
[2018-04-10] MEDS ORDERED: LIDOCAINE HCL 1% PF 5 ML SYRINGE OTHER ONE (12:00)
[2018-04-10] MEDS ORDERED: DEXAMETHASONE SOD PHOS 4 MG/ML VIAL IV ONE (12:00)
[2018-04-10] MEDS ORDERED: PROPOFOL 200 MG/20 ML AMP IV ONE (12:00)
[2018-04-10] MEDS ORDERED: ePHEDrine/NS 25 MG/5 ML SYRINGE IV ONE (12:00)
[2018-04-10 12:01] VITALS: BP 139/68; PULSE 54; RESP 17; TEMP 97.6; O2SAT 99
[2018-04-10] MEDS ORDERED: MIDAZOLAM HCL 2 MG/2 ML VIAL ONE (17:21)
--- NOTE | 2018-04-10 17:22 | HHI.PR ---
Immediate Post Op Note Procedure Date: April 10, 2018 Pre Op Diagnosis: BL leg cellultis, ulcers. Post Op Diagnosis: Surgeon: Kin Holguin [employer] Librarian(s): scrub Procedure: Sharp excisional debridement of BL legs Findings: see op dictation Complications: none Specimen(s) removed: tissue cx BL ulcers Estimated blood loss: less than 30mL Anesthesia: General Drains: None Patient to: PACU Patient Condition: Good Kin Holguin DPM April 10, 2018 17:22
[2018-04-10] MEDS ORDERED: *morphine SULFATE 4 MG/ML PERIprocedure ONLY ONE (17:40)
[2018-04-10] MEDS ORDERED: DO NOT ADM ANY ANTICOAGULANT DRUGS PRN (18:00)
--- NOTE | 2018-04-10 18:30 | MP ---
cc: Kin Marlow DPM DATE OF OPERATION: 04/10/2018 PREOPERATIVE DIAGNOSIS: Bilateral leg cellulitis with large ulcerations, one of the medial right distal calf and one of the lateral distal right calf. POSTOPERATIVE DIAGNOSIS: Bilateral leg cellulitis with large ulcerations, one of the medial right distal calf and one of the lateral distal right calf. PROCEDURE PERFORMED: Sharp excisional debridement of bilateral legs, greater than 20 square cm. This was full thickness debridement without penetrating deep fascia or bone. COMPLICATIONS: None. SPECIMENS: Tissue cultures of bilateral ulcers for culture and sensitivity, AFB and fungal. ESTIMATED BLOOD LOSS: Less than 30 mL ANESTHESIA: General. DRAINS: None. TOURNIQUET TIME: No tourniquets used. ACTIVITY: Return to floor after recovery in PACU. Monitor foot wounds for improvement. JUSTIFICATION FOR PROCEDURE: This is a 58-year-old female with worsening legs. It appears that she has had problems finding medical treatment for her cellulitis and edema. She presented to the hospital. She did have MRIs that were performed, but they were not significant on the right for osteomyelitis to a deep involvement. The left was noted to have hardware within the ankle, but appeared to have no radiolucency around the area and the ulcers did not appear to probe deep. The patient was educated on the need for compression, elevation and controlling of edema, as well as the infection and likely wound care. The patient will need arrangement upon discharge with wound care center that takes her insurance. PROCEDURE IN DETAIL: Under mild sedation, the patient was brought to the operating room, placed on the operating table in supine position. Following the induction of general anesthesia, the right and left lower extremities were scrubbed, prepped and draped in the usual aseptic fashion. The feet were elevated and examined. The right lower extremity was first, there was noted to be a large hypertrophic, malodor, crusting medial leg wound measuring approximately 8 x 4 cm. Upon curetting, rongeur and using Versajet, all nonviable tissue was debrided to viable bleeding tissue. There was no probing deep down to the deep fascia or bone. A tissue culture was taken at this time. Attention was then directed to the left lower extremity. A similar type wound, however, on the lateral aspect did not appear to communicate with the incision from a previous ORIF. It was noted to be well healed. There was a malodor. There was a hypertrophic skin, crusting. All nonviable tissue was sharply excised utilizing a curette and Versajet to viable bleeding tissue. Once again, there was no probing beyond adipose down to fascia. No bone exposed, no plate, no hardware exposed. Bilateral extremities received Xeroform bandaging, compressive wrapping from the feet to the ankle, as well as the proximal calf. The patient tolerated the procedure well. Minimal blood loss was noted, 10 mL at most. I am recommending we continue to follow the patient's cultures. I am going to reconsult the wound care team for placement of Unna boots to help with compression wrapping. Hopefully, that will take place within the next 1-2 days. I will continue to follow along. However, in the hospital setting only, as I do not take her insurance outpatient, but we will work with case management to arrange hopefully a wound care center followup. JUNE Tanner , 05:22 PM , 06:28 PM
[2018-04-10 20:52] VITALS: BP 126/71; PULSE 66; RESP 20; TEMP 98; O2SAT 97
[2018-04-10] MEDS ORDERED: PHARMACY ORDERED LAB ONE (23:45)
[2018-04-11 00:59] VITALS: BP 142/82; PULSE 58; RESP 20; TEMP 98.1; O2SAT 94
[2018-04-11] MEDS: PIPERACIL-TAZO 3.375 GM PREMIX 50 ML IV SCH ×4 (02:00→20:54)
[2018-04-11 04:59] VITALS: BP 175/79; PULSE 58; RESP 20; TEMP 97.7; O2SAT 95
[2018-04-11 06:50] LABS: AUTOMATED NEUTROPHIL # 4.4 TH/MM3 (1.8-7.7); BASOPHIL % 0.2 % (0.0-2.0); EOSINOPHIL % 0.1 % (0.0-4.0); HEMATOCRIT 32.9 % (35.0-46.0); LYMPH % 16.2 % (9.0-44.0); LYMPHOCYTE # 0.9 TH/MM3 (1.0-4.8); MEAN CELL VOLUME 77.1 FL (80.0-100.0); MEAN CORPUSCULAR HEMOGLOBIN 25.7 PG (27.0-34.0); MEAN CORPUSCULAR HGB CONC 33.3 % (32.0-36.0); MEAN PLATELET VOLUME 6.9 FL (7.0-11.0); MONO % 2.2 % (0.0-8.0); MONOCYTE # 0.1 TH/MM3 (0-0.9); NEUT % 81.3 % (16.0-70.0); PLATELET COUNT 260 TH/MM3 (150-450); RED BLOOD COUNT 4.27 MIL/MM3 (4.00-5.30); RED CELL DISTRIBUTION WIDTH 13.5 % (11.6-17.2); WHITE BLOOD COUNT 5.5 TH/MM3 (4.0-11.0)
[2018-04-11 07:03] LABS: BICARBONATE 27.8 MEQ/L (21.0-32.0); CREATININE 1.04 MG/DL (0.50-1.00)
[2018-04-11 08:00] VITALS: BP 152/60; PULSE 57; RESP 16; TEMP 98; O2SAT 95
--- NOTE | 2018-04-11 08:08 | HHI.PR ---
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 No n/v/d/c Objective Vitals Vital Signs Date Time Temp Pulse Resp B/P (MAP) Pulse Ox O2 Delivery O2 Flow Rate FiO2 04/11/18 05:24 Room Air 04/11/18 04:59 97.7 58 20 175/79 (111) 95 04/11/18 00:59 98.1 58 20 142/82 (102) 94 04/10/18 21:00 Room Air 04/10/18 20:52 98.0 66 20 126/71 (89) 97 04/10/18 17:44 61 12 156/71 (99) 100 Room Air 04/10/18 17:36 59 12 168/77 (107) 100 Room Air 04/10/18 17:20 60 12 165/64 (97) 100 Room Air 04/10/18 17:13 98.0 64 12 175/77 (109) 100 Room Air 04/10/18 12:01 97.6 54 17 139/68 (91) 99 04/10/18 09:17 Room Air I/O 04/10/18 04/10/18 04/10/18 04/11/18 04/11/18 04/11/18 07:00 15:00 23:00 07:00 15:00 23:00 Intake Total 240 ml 565 ml 500 ml 350 ml Output Total 300 ml 1310 ml Balance -60 ml 565 ml -810 ml 350 ml Intake Oral 240 ml 350 ml IV Total 565 ml Other 500 ml Output Urine Total 300 ml 1300 ml Estimated Blood Loss 10 ml # Voids 1 # Bowel Movements 0 0 3 Result Diagram: 04/11/1851804/11/18518 Objective Remarks GENERAL: This is a well-nourished, well-developed patient, in no apparent distress. CARDIOVASCULAR: Regular rate and rhythm without murmurs, gallops, or rubs. RESPIRATORY: Clear to auscultation. Breath sounds equal bilaterally. No wheezes , rales, or rhonchi. GASTROINTESTINAL: Abdomen soft, non-tender, nondistended. No hepato-splenomegaly , or palpable masses. No guarding. MUSCULOSKELETAL: Extremities without clubbing, cyanosis, or edema. No joint tenderness, effusion, or edema noted. No calf tenderness. Negative Homans sign bilaterally. NEUROLOGICAL: Awake and alert. Cranial nerves II through XII intact. Motor and sensory grossly within normal limits. Five out of 5 muscle strength in all muscle groups. Normal speech. Procedures /P bilateral leg excisional debridement 04/10/[address] Marlow podiatry A/P Problem List: (1) Infected ulcer of skin ICD Code: L98.499 - Non-pressure chronic ulcer of skin of other sites with unspecified severity; L08.9 - Local infection of the skin and subcutaneous tissue, unspecified Status: Acute Assessment and Plan Infected wounds, cellulitis bilateral legs- was treated with oral antibiotics twice without any significant improvement Continue IV antibiotics- consult ID and wound care- continue with pain control. Follow cultures. Consult podiatry ff, Dr. Marlow. S/P bilateral leg excisional debridement by Dr Marlow podiatry Also seen by infectious disease, appreciate recommendations [place] for pain, continue ketorolac for breakthrough pain Anemia- likely due to chronic disease- monitor H/H, transfuse of HGB < 7 or if symptomatic DVT prophylaxis: Lovenox SQ Discussed Condition With nurse, patient. Bozena Chamberlain MD April 11, 2018 08:08
[2018-04-11] MEDS: KETOCONAZOLE 2% CREAM 15 GM TOPICAL SCH (08:25)
[2018-04-11] MEDS: ENOXAPARIN SODIUM 40 MG/0.4 ML SYRINGE SQ SCH (08:25)
[2018-04-11] MEDS: ACETAMINOPHEN/HYDROcodone 325 MG/5 MG TAB PO PRN ×2 (08:34→16:53)
[2018-04-11] MEDS: KETOROLAC TROMETHAMINE 30 MG/ML (IVP) VIAL IV PUSH PRN (11:04)
--- NOTE | 2018-04-11 11:52 | EKG ---
Date Performed: 04/10/2018 Time Performed: 04:47:02 PTAGE: 58 years EKG: Sinus bradycardia Normal ECG except for rate NO PREVIOUS TRACING DOCTOR: Ta Norris Interpretating Date/Time 04/11/2018 11:48:28
[2018-04-11 12:00] VITALS: BP 169/74; PULSE 64; RESP 18; TEMP 97.9; O2SAT 96
--- NOTE | 2018-04-11 12:48 | HHI.IDPN ---
Subjective Subjective Remarks Patient seen and examined on behalf of Dr. Georges This is a very pleasant 58[facility] female who denies any significant past medical history and presented to [facility] ED with complaints of progressive bilateral lower extremity leg wounds 8 months. Patient states that 8 months ago she was bitten by ants on the right lower leg and began to develop an infection. Shortly thereafter, she developed similar wounds on the front of the lower left leg however she does not recall being bit by ants or having any other type of bite or injury. Patient states the both leg wounds have been progressive with increase in size and becoming more painful. Patient states she has been treated twice at [facility] in [place] in October and November with oral antibiotics the names of which she cannot recall without any significant improvement. Patient states she came in today because leg wounds have become so painful that her home use of ibuprofen is no longer giving her any relief. Patient denies any known history of immunocompromised state. She is not on any steroids. She denies any past medical history of diabetes. She denies any history of similar infections in the past. She denies any history of HIV or hepatitis. Infectious disease consultation has been requested for evaluation and management of bilateral leg wounds. Patient is seen and examined. She denies any other associated symptoms such as fever, chills, nausea, vomiting, chest pain, shortness of breath, abdominal pain, dysuria or diarrhea. Currently she is afebrile. Her white count is within normal limits. Blood cultures and wound cultures are pending. Bilateral lower extremity Dopplers were negative for DVT. X-ray of the right lower extremity revealed soft tissue swelling and a irregularity involving the medial distal matthew region with the underlying tibia notable for mild undulating periosteal reaction worrisome for underlying osteomyelitis. X-ray of the left lower extremity shows soft tissue findings no definite acute bony findings. She does have hardware in the lower extremity as a result of ORIF repair of ankle fracture. She is comfortable at present. She states that she decided to come in to the hospital at this time due to the fact that the leg wounds are becoming more painful and that her home use of ibuprofen is no longer giving her any relief. Patient denies any known history of immunocompromised state. She is not on any steroids. She denies any past medical history of diabetes. She denies any history of similar infections in the past. She denies any history of HIV or hepatitis. Notes reviewed Op note reviewed - s/p I&D bilateral ulcers by Dr. Marlow 04/10 BLE pain controlled c/o headache no fever or chills no rash no dysuria no diarrhea afebrile no leukocytosis CRP 2.90 ESR 32 mild SABRA with cr 1.04 A1c 6.3 - no reported hx of DM BCX neg x 3 days Wound cx + gram pos cocci in pairs Antibiotics IV Vancomycin IV Zosyn Lines PIV with no e/o infection Past Medical History None (Nieves Malik) Allergies: Coded Allergies: No Known Allergies (Unverified , 04/10/18) Objective . Vital Signs Date Time Temp Pulse Resp B/P (MAP) Pulse Ox O2 Delivery O2 Flow Rate FiO2 04/11/18 12:00 97.9 64 18 169/74 (105) 96 04/11/18 11:20 Room Air 04/11/18 08:00 98.0 57 16 152/60 (90) 95 04/11/18 05:24 Room Air 04/11/18 04:59 97.7 58 20 175/79 (111) 95 04/11/18 00:59 98.1 58 20 142/82 (102) 94 04/10/18 21:00 Room Air 04/10/18 20:52 98.0 66 20 126/71 (89) 97 04/10/18 17:44 61 12 156/71 (99) 100 Room Air 04/10/18 17:36 59 12 168/77 (107) 100 Room Air 04/10/18 17:20 60 12 165/64 (97) 100 Room Air 04/10/18 17:13 98.0 64 12 175/77 (109) 100 Room Air . Laboratory Tests Test 04/10/18 06:42 04/11/18 05:19 White Blood Count 6.0 TH/MM3 5.5 TH/MM3 Red Blood Count 3.89 MIL/MM3 4.27 MIL/MM3 Hemoglobin 9.9 GM/DL 11.0 GM/DL Hematocrit 30.5 % 32.9 % Mean Corpuscular Volume 78.3 FL 77.1 FL Mean Corpuscular Hemoglobin 25.6 PG 25.7 PG Mean Corpuscular Hemoglobin Concent 32.7 % 33.3 % Red Cell Distribution Width 13.9 % 13.5 % Platelet Count 197 TH/MM3 260 TH/MM3 Mean Platelet Volume 7.3 FL 6.9 FL Neutrophils (%) (Auto) 45.6 % 81.3 % Lymphocytes (%) (Auto) 43.7 % 16.2 % Monocytes (%) (Auto) 7.8 % 2.2 % Eosinophils (%) (Auto) 1.9 % 0.1 % Basophils (%) (Auto) 1.0 % 0.2 % Neutrophils # (Auto) 2.7 TH/MM3 4.4 TH/MM3 Lymphocytes # (Auto) 2.6 TH/MM3 0.9 TH/MM3 Monocytes # (Auto) 0.5 TH/MM3 0.1 TH/MM3 Eosinophils # (Auto) 0.1 TH/MM3 0.0 TH/MM3 Basophils # (Auto) 0.1 TH/MM3 0.0 TH/MM3 CBC Comment AUTO DIFF DIFF FINAL Differential Comment AUTO DIFF CONFIRMED Platelet Estimate NORMAL Platelet Morphology Comment NORMAL Ovalocytes 1+ Laboratory Tests Test 04/10/18 06:42 04/11/18 05:19 Blood Urea Nitrogen 13 MG/DL 10 MG/DL Creatinine 1.05 MG/DL 1.04 MG/DL Random Glucose 95 MG/DL 129 MG/DL Calcium Level 8.4 MG/DL 9.0 MG/DL Sodium Level 143 MEQ/L 141 MEQ/L Potassium Level 4.2 MEQ/L 4.4 MEQ/L Chloride Level 106 MEQ/L 105 MEQ/L Carbon Dioxide Level 29.6 MEQ/L 27.8 MEQ/L Anion Gap 7 MEQ/L 8 MEQ/L Estimat Glomerular Filtration Rate 54 ML/MIN 54 ML/MIN Microbiology Date/Time Source Procedure Growth Status 04/08/18 19:35 Blood Peripheral Aerobic Blood Culture - Preliminary NO GROWTH IN 3 DAYS Resulted 04/08/18 19:35 Blood Peripheral Anaerobic Blood Culture - Preliminary NO GROWTH IN 3 DAYS Resulted 04/08/18 19:35 Blood Peripheral Aerobic Blood Culture - Preliminary NO GROWTH IN 3 DAYS Resulted 04/08/18 19:35 Blood Peripheral Anaerobic Blood Culture - Preliminary NO GROWTH IN 3 DAYS Resulted 04/10/18 18:30 Wound Leg Fungal Smear - Final NO FUNGAL ELEMENTS SEEN. Resulted 04/10/18 18:30 Wound Leg Fungal Culture Pending Resulted 04/10/18 18:30 Wound Leg Acid Fast Stain Pending Received 04/10/18 18:30 Wound Leg Mycobacterial Culture Pending Received 04/10/18 18:30 Wound Leg Gram Stain - Final Resulted 04/10/18 18:30 Wound Leg Wound Culture Pending Resulted 04/10/18 18:30 Wound Leg Fungal Smear - Final RARE BUDDING YEAST CELLS Resulted 04/10/18 18:30 Wound Leg Fungal Culture Pending Resulted 04/10/18 18:30 Wound Leg Acid Fast Stain Pending Received 04/10/18 18:30 Wound Leg Mycobacterial Culture Pending Received 04/10/18 18:30 Wound Leg Gram Stain - Final Resulted 04/10/18 18:30 Wound Leg Wound Culture Pending Resulted 04/08/18 19:30 Wound Leg Gram Stain - Final Complete 04/08/18 19:30 Wound Leg Wound Culture - Final Complete Imaging Last Impressions Lower Extremity MRI 04/09/18 0000 Signed Impressions: Service Date/Time: Monday, April 09, 2018 09:53 - CONCLUSION: Soft tissue wound with extensive cellulitis or varicosities. Laboratory changes do extend to the cortical surface of the distal tibia. Careful followup is suggested to exclude developing osteomyelitis.. Derek Zepeda MD FACR Lower Extremity Ultrasound 04/08/18 1928 Signed Impressions: Service Date/Time: Sunday, April 08, 2018 20:15 - CONCLUSION: Normal examination. Fercho Vickers MD Tibia/Fibula X-Ray 04/08/18 0000 Signed Impressions: Service Date/Time: Sunday, April 08, 2018 19:35 - CONCLUSION: Soft tissue findings. No definite acute bony findings Fercho Vickers MD Physical Exam GENERAL: This is a well-nourished, well-developed female patient, in no apparent distress. Awake and alert. SKIN: Warm and dry. + Bilateral large foul-smelling ulcerations over the pretibial areas with surrounding cellulitic changes and some purulent drainage with granulation tissue noted in wound beds R>L noted during previous exam, s/p I&D, in postop dressing, C/D/I, did not remove. Able to wiggle toes on both feet. N/V intact distally. + Pruritic scaly rash over lower cleavage area. HEAD: Atraumatic. Normocephalic. No temporal or scalp tenderness. EYES: Pupils equal round and reactive. Extraocular motions intact. No scleral icterus. No injection or drainage. ENT: Nose without bleeding or purulent drainage. Throat without erythema, tonsillar hypertrophy or exudate. Uvula midline. Airway patent. NECK: Trachea midline. No lymphadenopathy. Supple, nontender, no meningeal signs. CARDIOVASCULAR: Regular rate and rhythm without murmurs, gallops, or rubs. RESPIRATORY: Clear to auscultation. Breath sounds equal bilaterally. No wheezes , rales, or rhonchi. GASTROINTESTINAL: Abdomen soft, non-tender, nondistended. No hepato-splenomegaly , or palpable masses. No guarding. MUSCULOSKELETAL: Extremities without clubbing, cyanosis, or edema. No joint tenderness, effusion, or edema noted. No calf tenderness. + Varicosities bilateral lower extremities. NEUROLOGICAL: Awake and alert. Cranial nerves II through XII grossly intact. Motor and sensory grossly within normal limits. No focal neurologic finding appreciated. Normal speech. PSYCHIATRIC: Appropriate mood and affect. Calm and pleasant. Cooperative with exam. PIV site with no evidence of infection (Nieves Malik) Assessment & Plan Remarks Bilateral lower extremity cellulitis with open wounds/ulcerations and concern for underlying osteomyelitis Tinea corporis Anemia,mild HgbA1c 6.3 ?diabetic SABRA, mild Recommendations: Continue on IV Zosyn and IV Vancomycin for now Monitor kidney function, repeat BMP in am Follow-up on wound culture and blood culture results until finalized Monitor for clinical improvement Further recommendations to follow (Nieves Malik) Remarks The exam, history, and the medical decision-making described in the above note were completed with the assistance of the mid-level provider. I reviewed and agree with the findings presented. I attest that I had a isah-ge-etoh encounter with the patient on the same day, and personally performed and documented my assessment and findings in the medical record. Complains of pain bilateral lower extremity Bilateral feet and postop dressings Clear to auscultation bilaterally Abdomen soft nontender. Recommendations continue Zosyn IV Continue vancomycin IV Follow cultures Follow clinically Dr. Tamiko James covering for me this weekend. (Shaunna Georges MD) Nieves Malik April 11, 2018 12:48 Shaunna Georges MD April 11, 2018 16:18
[2018-04-11 16:00] VITALS: BP 144/73; PULSE 60; RESP 18; TEMP 98.2; O2SAT 99
[2018-04-11] MEDS: VANCOMYCIN INJ 1,500 MG in SODIUM CHLORID 0.9% 500 ML INJ 500 ML IV SCH (16:52)
--- NOTE | 2018-04-11 18:00 | PD.WCN.NOT ---
Wound Consult Description: Received consult from Doctor Marlow for BL distal legs. Please apply Unna boots every 3 days Communicated with: RN Isabel carballo and Doctor Marlow Recommendation: 1.RN to leave Pérez boots in place. Wound care nurse will change Pérez boots every 3 to 5 days while patient is in hospital. 2. Will cleanse wounds with normal saline and pat dry and apply optilock over draining wounds before applying pérez boots Additional Information: Patient seen on for bilateral unna boot evaluation. Spoke with Doctor Marlow, inquired about BRIAN order to assess circulation. Doctor Marlow did not want BRIAN and states, "Patient has good blood flow and pulses."Also clarified with Doctor Marlow if a Pérez boot with coban vs. unna boot was needed for patient. Doctor Marlow wants Pérez boots. Patient in room and in bed during Pérez boot application.Removed elastic wraps in place to BLE, gauze and xeroform to reveal wounds. Wound to LLE is located on matthew and measures ~5cm x ~4cm x~ 0.2cm. Wound bed is noted with 90% red non granulation tissue and ~10% thin yellow tissue. Wound bed is moist with minimal active sero-sanguinous drainage that is without odor. Wound margins are well defined and sharp.Wound was cleansed with normal saline and patted dry. Applied Optilock dressing in place, for wound drainage before applying pérez boot. Removed elastic wrap, gauze and xeroform to RLE to reveal wound to R matthew that measures ~5cm x ~6cm x ~0.2cm. Wound presents with ~95% red non granulation tissue and ~5 % thin yellow tissue. Wound drainage is minimal and sero- sanguinous without odor.Periwound presents with erythema and edema that appears to be resolving. Wound margins are sharp and well defined. Cleansed wound with normal saline and patted dry. Covered wound with Optilock dressing for wound drainage before applying Pérez boot.Patient tolerated procedure well. Geena Llanos [facility] April 11, 2018 18:00
[2018-04-11 21:20] VITALS: BP 165/72; PULSE 54; RESP 16; TEMP 97.8; O2SAT 94
[2018-04-12] VITALS: BP 160/66; PULSE 55; RESP 17; TEMP 98.1; O2SAT 96
[2018-04-12] MEDS: ACETAMINOPHEN/HYDROcodone 325 MG/10 MG TAB PO PRN ×2 (00:55→21:34)
[2018-04-12] MEDS: PIPERACIL-TAZO 3.375 GM PREMIX 50 ML IV SCH ×4 (01:28→21:27)
[2018-04-12 04:00] VITALS: BP 132/96; PULSE 56; RESP 16; TEMP 97.7; O2SAT 96
[2018-04-12 08:00] VITALS: BP 151/66; PULSE 49; RESP 18; TEMP 97.5; O2SAT 95
[2018-04-12 08:25] LABS: CREATININE 1.25 MG/DL (0.50-1.00)
--- NOTE | 2018-04-12 08:54 | HHI.PR ---
Subjective Remarks Pain especially when she is trying to ambulate. No fever chills overnight. Says she had palpitations. No nausea vomiting able to eat. Objective Vitals Vital Signs Date Time Temp Pulse Resp B/P (MAP) Pulse Ox O2 Delivery O2 Flow Rate FiO2 04/12/18 04:00 97.7 56 16 132/96 (108) 96 04/12/18 00:00 98.1 55 17 160/66 (97) 96 04/11/18 21:20 97.8 54 16 165/72 (103) 94 04/11/18 16:00 98.2 60 18 144/73 (96) 99 04/11/18 12:00 97.9 64 18 169/74 (105) 96 04/11/18 11:20 Room Air I/O 04/11/18 04/11/18 04/11/18 04/12/18 04/12/18 04/12/18 07:00 15:00 23:00 07:00 15:00 23:00 Intake Total 350 ml 910 ml 400 ml Output Total 600 ml Balance 350 ml 910 ml -200 ml Intake Oral 350 ml 560 ml 400 ml IV Total 350 ml Output Urine Total 600 ml # Voids 1 4 # Bowel Movements 3 1 Result Diagram: 04/11/18 0519 04/12/18 0716 Imaging Last Impressions Lower Extremity MRI 04/09/18 0000 Signed Impressions: Service Date/Time: Monday, April 09, 2018 09:53 - CONCLUSION: Soft tissue wound with extensive cellulitis or varicosities. Laboratory changes do extend to the cortical surface of the distal tibia. Careful followup is suggested to exclude developing osteomyelitis.. Derek Zepeda MD FACR Lower Extremity Ultrasound 04/08/181927 Signed Impressions: Service Date/Time: Sunday, April 08, 2018 20:15 - CONCLUSION: Normal examination. Fercho Vickers MD Tibia/Fibula X-Ray 04/08/18 0000 Signed Impressions: Service Date/Time: Sunday, April 08, 2018 19:35 - CONCLUSION: Soft tissue findings. No definite acute bony findings Fercho Vickers MD Objective Remarks GENERAL: This is a well-nourished, well-developed patient, in no apparent distress. CARDIOVASCULAR: Regular rate and rhythm without murmurs, gallops, or rubs. RESPIRATORY: Clear to auscultation. Breath sounds equal bilaterally. No wheezes , rales, or rhonchi. GASTROINTESTINAL: Abdomen soft, non-tender, nondistended. No hepato-splenomegaly , or palpable masses. No guarding. MUSCULOSKELETAL: Extremities without clubbing, cyanosis, or edema. No joint tenderness, effusion, or edema noted. No calf tenderness. Negative Homans sign bilaterally. NEUROLOGICAL: Awake and alert. Cranial nerves II through XII intact. Motor and sensory grossly within normal limits. Five out of 5 muscle strength in all muscle groups. Normal speech. Procedures S/P bilateral leg excisional debridement 04/10/[address] Marlow podiatry A/P Problem List: (1) Infected ulcer of skin ICD Code: L98.499 - Non-pressure chronic ulcer of skin of other sites with unspecified severity; L08.9 - Local infection of the skin and subcutaneous tissue, unspecified Status: Acute Assessment and Plan Infected wounds, cellulitis bilateral legs- was treated with oral antibiotics twice without any significant improvement Continue IV antibiotics vancomycin and Zosyn consult ID and wound care- continue with pain control. Follow cultures. Consult podiatry ff, Dr. Marlow. S/P bilateral leg excisional debridement by Dr Marlow podiatry Also seen by infectious disease, appreciate recommendations [place] for pain pain meds adjusted. DC ketorolac for breakthrough pain as patient noted with worsening kidney function . Pain meds adjusted. Anemia- likely due to chronic disease- monitor H/H, transfuse of HGB < 7 or if symptomatic. 9. Kidney function is worsening. Avoid nephrotoxins. Discontinue ketorolac. DVT prophylaxis: Lovenox SQ Discussed Condition With nurse, patient. Bozena Chamberlain MD April 12, 2018 08:54
[2018-04-12] MEDS: KETOCONAZOLE 2% CREAM 15 GM TOPICAL SCH (09:00)
[2018-04-12] MEDS: ENOXAPARIN SODIUM 40 MG/0.4 ML SYRINGE SQ SCH (09:32)
[2018-04-12 12:00] VITALS: BP 166/67; PULSE 54; RESP 18; TEMP 98.2; O2SAT 98
[2018-04-12] MEDS: VANCOMYCIN INJ 1,500 MG in SODIUM CHLORID 0.9% 500 ML INJ 500 ML IV SCH (12:25)
[2018-04-12 16:00] VITALS: BP 140/66; PULSE 54; RESP 18; TEMP 98.1; O2SAT 99
[2018-04-12 20:00] VITALS: BP 162/88; PULSE 54; RESP 20; TEMP 98; O2SAT 98
[2018-04-13] VITALS: BP 123/60; PULSE 53; RESP 20; TEMP 98; O2SAT 96
[2018-04-13] MEDS: PIPERACIL-TAZO 3.375 GM PREMIX 50 ML IV SCH ×4 (03:00→20:33)
[2018-04-13 04:00] VITALS: BP 156/70; PULSE 47; RESP 20; TEMP 97.9; O2SAT 96
[2018-04-13] MEDS ORDERED: PHARMACY ORDERED LAB ONE (05:45)
[2018-04-13] MEDS: VANCOMYCIN INJ 1,500 MG in SODIUM CHLORID 0.9% 500 ML INJ 500 ML IV SCH (06:25)
[2018-04-13 08:00] VITALS: BP 162/76; PULSE 50; RESP 16; TEMP 97.4; O2SAT 98
[2018-04-13] MEDS: ENOXAPARIN SODIUM 40 MG/0.4 ML SYRINGE SQ SCH (08:12)
[2018-04-13] MEDS: KETOCONAZOLE 2% CREAM 15 GM TOPICAL SCH (08:18)
--- NOTE | 2018-04-13 09:25 | HHI.PR ---
Subjective Remarks With pain in her legs especially when walking. No fever or chills overnight. no n/v/d/c. Objective Vitals Vital Signs Date Time Temp Pulse Resp B/P (MAP) Pulse Ox O2 Delivery O2 Flow Rate FiO2 04/13/18 08:00 97.4 50 16 162/76 (104) 98 04/13/18 08:00 Room Air 04/13/18 07:00 Room Air 04/13/18 04:00 97.9 47 20 156/70 (98) 96 04/13/18 04:00 Room Air 04/13/18 00:00 98.0 53 20 123/60 (81) 96 04/13/18 00:00 Room Air 04/12/18 22:00 Room Air 04/12/18 20:00 98.0 54 20 162/88 (112) 98 04/12/18 16:09 Room Air 04/12/18 16:00 98.1 54 18 140/66 (90) 99 04/12/18 12:00 Room Air 04/12/18 12:00 98.2 54 18 166/67 (100) 98 I/O 04/12/18 04/12/18 04/12/18 04/13/18 04/13/18 04/13/18 07:00 15:00 23:00 07:00 15:00 23:00 Intake Total 400 ml 530 ml 470 ml Output Total 600 ml Balance -200 ml 530 ml 470 ml Intake Oral 400 ml 480 ml 420 ml IV Total 50 ml 50 ml Output Urine Total 600 ml # Voids 4 3 # Bowel Movements 0 Result Diagram: 04/11/18 0519 04/12/18 0716 Imaging Last Impressions Lower Extremity MRI 04/09/18 0000 Signed Impressions: Service Date/Time: Monday, April 09, 2018 09:53 - CONCLUSION: Soft tissue wound with extensive cellulitis or varicosities. Laboratory changes do extend to the cortical surface of the distal tibia. Careful followup is suggested to exclude developing osteomyelitis.. Derek Zepeda MD FACR Lower Extremity Ultrasound 04/08/181927 Signed Impressions: Service Date/Time: Sunday, April 08, 2018 20:15 - CONCLUSION: Normal examination. Fercho Vickers MD Tibia/Fibula X-Ray 04/08/18 0000 Signed Impressions: Service Date/Time: Sunday, April 08, 2018 19:35 - CONCLUSION: Soft tissue findings. No definite acute bony findings Fercho Vickers MD Objective Remarks GENERAL: This is a well-nourished, well-developed patient, in no apparent distress. CARDIOVASCULAR: Regular rate and rhythm without murmurs, gallops, or rubs. RESPIRATORY: Clear to auscultation. Breath sounds equal bilaterally. No wheezes , rales, or rhonchi. GASTROINTESTINAL: Abdomen soft, non-tender, nondistended. No hepato-splenomegaly , or palpable masses. No guarding. MUSCULOSKELETAL: Extremities without clubbing, cyanosis, or edema. No joint tenderness, effusion, or edema noted. No calf tenderness. Negative Homans sign bilaterally. NEUROLOGICAL: Awake and alert. Cranial nerves II through XII intact. Motor and sensory grossly within normal limits. Five out of 5 muscle strength in all muscle groups. Normal speech. Procedures S/P bilateral leg excisional debridement 04/10/[address] Marlow podiatry A/P Problem List: (1) Infected ulcer of skin ICD Code: L98.499 - Non-pressure chronic ulcer of skin of other sites with unspecified severity; L08.9 - Local infection of the skin and subcutaneous tissue, unspecified Status: Acute Assessment and Plan Infected wounds, cellulitis bilateral legs- was treated with oral antibiotics twice without any significant improvement Continue IV antibiotics vancomycin and Zosyn consult ID and wound care- continue with pain control. Follow cultures. Consult podiatry ff, Dr. Marlow. S/P bilateral leg excisional debridement by Dr Marlow podiatry Also seen by infectious disease, appreciate recommendations [place] for pain pain meds adjusted. DC ketorolac for breakthrough pain as patient noted with worsening kidney function . Pain meds adjusted. Anemia- likely due to chronic disease- monitor H/H, transfuse of HGB < 7 or if symptomatic. 9. Kidney function is worsening. Avoid nephrotoxins. Discontinue ketorolac. DVT prophylaxis: Lovenox SQ Discussed Condition With nurse, patient. Bozena Chamberlain MD April 13, 2018 09:25
[2018-04-13 12:00] VITALS: BP 149/87; PULSE 57; RESP 18; TEMP 98.2; O2SAT 99
[2018-04-13] MEDS: ACETAMINOPHEN/HYDROcodone 325 MG/5 MG TAB PO PRN (14:13)
[2018-04-13 16:00] VITALS: BP 159/74; PULSE 60; RESP 18; TEMP 98.3; O2SAT 97
[2018-04-13 20:00] VITALS: BP 174/63; PULSE 63; RESP 18; TEMP 97.7; O2SAT 95
[2018-04-13] MEDS: ACETAMINOPHEN/HYDROcodone 325 MG/10 MG TAB PO PRN (23:07)
[2018-04-14] VITALS: BP 171/72; PULSE 54; RESP 16; TEMP 97.8; O2SAT 97
[2018-04-14] MEDS: PIPERACIL-TAZO 3.375 GM PREMIX 50 ML IV SCH ×4 (00:59→20:42)
[2018-04-14 04:00] VITALS: BP 142/65; PULSE 51; RESP 16; TEMP 97.9; O2SAT 96
[2018-04-14] MEDS: VANCOMYCIN INJ 1,500 MG in SODIUM CHLORID 0.9% 500 ML INJ 500 ML IV SCH (05:22)
[2018-04-14 06:30] LABS: CREATININE 1.15 MG/DL (0.50-1.00)
[2018-04-14 08:01] VITALS: BP 138/63; PULSE 56; RESP 17; TEMP 97.8; O2SAT 97
[2018-04-14] MEDS: ACETAMINOPHEN/HYDROcodone 325 MG/10 MG TAB PO PRN ×2 (08:40→16:44)
[2018-04-14] MEDS: ENOXAPARIN SODIUM 40 MG/0.4 ML SYRINGE SQ SCH (08:40)
[2018-04-14] MEDS: KETOCONAZOLE 2% CREAM 15 GM TOPICAL SCH (08:41)
--- NOTE | 2018-04-14 09:55 | HHI.PR ---
Subjective Remarks She is in bed. Says with pain in her legs especially when she is trying to walk. No fever or chills overnight. Objective Vitals Vital Signs Date Time Temp Pulse Resp B/P (MAP) Pulse Ox O2 Delivery O2 Flow Rate FiO2 04/14/18 08:01 97.8 56 17 138/63 (88) 97 04/14/18 04:00 Room Air 04/14/18 04:00 97.9 51 16 142/65 (90) 96 04/14/18 00:00 97.8 54 16 171/72 (105) 97 04/13/18 20:00 97.7 63 18 174/63 (100) 95 04/13/18 19:30 Room Air 04/13/18 16:46 Room Air 04/13/18 16:00 98.3 60 18 159/74 (102) 97 04/13/18 12:00 Room Air 04/13/18 12:00 98.2 57 18 149/87 (107) 99 I/O 04/13/18 04/13/18 04/13/18 04/14/18 04/14/18 04/14/18 07:00 15:00 23:00 07:00 15:00 23:00 Intake Total 470 ml 610 ml 450 ml Balance 470 ml 610 ml 450 ml Intake Oral 420 ml 560 ml 450 ml IV Total 50 ml 50 ml # Voids 3 5 6 # Bowel Movements 0 2 Result Diagram: 04/11/18 0519 04/14/18 0530 Objective Remarks GENERAL: This is a well-nourished, well-developed patient, in no apparent distress. CARDIOVASCULAR: Regular rate and rhythm without murmurs, gallops, or rubs. RESPIRATORY: Clear to auscultation. Breath sounds equal bilaterally. No wheezes , rales, or rhonchi. GASTROINTESTINAL: Abdomen soft, non-tender, nondistended. No hepato-splenomegaly , or palpable masses. No guarding. MUSCULOSKELETAL: Extremities without clubbing, cyanosis, or edema. No joint tenderness, effusion, or edema noted. No calf tenderness. Negative Homans sign bilaterally. NEUROLOGICAL: Awake and alert. Cranial nerves II through XII intact. Motor and sensory grossly within normal limits. Five out of 5 muscle strength in all muscle groups. Normal speech. Procedures S/P bilateral leg excisional debridement 04/10/[address] Marlow podiatry A/P Problem List: (1) Infected ulcer of skin ICD Code: L98.499 - Non-pressure chronic ulcer of skin of other sites with unspecified severity; L08.9 - Local infection of the skin and subcutaneous tissue, unspecified Status: Acute Assessment and Plan Infected wounds, cellulitis bilateral legs- was treated with oral antibiotics twice without any significant improvement Continue IV antibiotics vancomycin and Zosyn consult ID and wound care- continue with pain control. Follow cultures. Consult podiatry ff, Dr. Marlow. S/P bilateral leg excisional debridement by Dr Marlow podiatry Also seen by infectious disease, appreciate recommendations [place] for pain pain meds adjusted. DC ketorolac for breakthrough pain as patient noted with worsening kidney function . Pain meds adjusted. Anemia- likely due to chronic disease- monitor H/H, transfuse of HGB < 7 or if symptomatic. 9. Kidney function is worsening. Avoid nephrotoxins. Discontinue ketorolac. DVT prophylaxis: Lovenox SQ Discussed Condition With nurse, patient. Bozena Chamberlain MD April 14, 2018 09:55
--- NOTE | 2018-04-14 10:25 | HHI.IDPN ---
Subjective Subjective Remarks Patient seen and examined on behalf of Dr. Georges This is a very pleasant 58-year-old [facility] female who denies any significant past medical history and presented to [facility] ED with complaints of progressive bilateral lower extremity leg wounds 8 months. Patient states that 8 months ago she was bitten by ants on the right lower leg and began to develop an infection. Shortly thereafter, she developed similar wounds on the front of the lower left leg however she does not recall being bit by ants or having any other type of bite or injury. Patient states the both leg wounds have been progressive with increase in size and becoming more painful. Patient states she has been treated twice at [facility] in [place] in October and November with oral antibiotics the names of which she cannot recall without any significant improvement. Patient states she came in today because leg wounds have become so painful that her home use of ibuprofen is no longer giving her any relief. Patient denies any known history of immunocompromised state. She is not on any steroids. She denies any past medical history of diabetes. She denies any history of similar infections in the past. She denies any history of HIV or hepatitis. Infectious disease consultation has been requested for evaluation and management of bilateral leg wounds. Patient is seen and examined. She denies any other associated symptoms such as fever, chills, nausea, vomiting, chest pain, shortness of breath, abdominal pain, dysuria or diarrhea. Currently she is afebrile. Her white count is within normal limits. Blood cultures and wound cultures are pending. Bilateral lower extremity Dopplers were negative for DVT. X-ray of the right lower extremity revealed soft tissue swelling and a irregularity involving the medial distal matthew region with the underlying tibia notable for mild undulating periosteal reaction worrisome for underlying osteomyelitis. X-ray of the left lower extremity shows soft tissue findings no definite acute bony findings. She does have hardware in the lower extremity as a result of ORIF repair of ankle fracture. She is comfortable at present. She states that she decided to come in to the hospital at this time due to the fact that the leg wounds are becoming more painful and that her home use of ibuprofen is no longer giving her any relief. Patient denies any known history of immunocompromised state. She is not on any steroids. She denies any past medical history of diabetes. She denies any history of similar infections in the past. She denies any history of HIV or hepatitis. Notes reviewed Op note reviewed - s/p I&D bilateral ulcers by Dr. Marlow 04/10 BLE pain controlled no fever or chills no rash no dysuria patient reports some diarrhea off and on, none today afebrile WBC WNL 04/11 CRP 2.90 ESR 32 SABRA with Cr increased to 1.25, improved some, now 1.15 A1c 6.3 - no reported hx of DM BCX neg x 5 days Wound cx + E coli, proteus mirabilis, group D enterococcus, staph Antibiotics IV Vancomycin IV Zosyn Lines PIV with no e/o infection Past Medical History None (Nieves Malik) Allergies: Coded Allergies: No Known Allergies (Unverified , 04/10/18) Objective . Vital Signs Date Time Temp Pulse Resp B/P (MAP) Pulse Ox O2 Delivery O2 Flow Rate FiO2 04/14/18 08:01 97.8 56 17 138/63 (88) 97 04/14/18 04:00 Room Air 04/14/18 04:00 97.9 51 16 142/65 (90) 96 04/14/18 00:00 97.8 54 16 171/72 (105) 97 04/13/18 20:00 97.7 63 18 174/63 (100) 95 04/13/18 19:30 Room Air 04/13/18 16:46 Room Air 04/13/18 16:00 98.3 60 18 159/74 (102) 97 04/13/18 12:00 Room Air 04/13/18 12:00 98.2 57 18 149/87 (107) 99 . Laboratory Tests Test 04/14/18 05:30 Creatinine 1.15 MG/DL Estimat Glomerular Filtration Rate 48 ML/MIN Imaging Last Impressions Lower Extremity MRI 04/09/18 0000 Signed Impressions: Service Date/Time: Monday, April 09, 2018 09:53 - CONCLUSION: Soft tissue wound with extensive cellulitis or varicosities. Laboratory changes do extend to the cortical surface of the distal tibia. Careful followup is suggested to exclude developing osteomyelitis.. Derek Zepeda MD FACR Lower Extremity Ultrasound 04/08/18 1928 Signed Impressions: Service Date/Time: Sunday, April 08, 2018 20:15 - CONCLUSION: Normal examination. Fercho Vickers MD Tibia/Fibula X-Ray 04/08/18 0000 Signed Impressions: Service Date/Time: Sunday, April 08, 2018 19:35 - CONCLUSION: Soft tissue findings. No definite acute bony findings Fercho Vickers MD Physical Exam GENERAL: This is a well-nourished, well-developed female patient, in no apparent distress. Awake and alert. Sitting up in bed. SKIN: Warm and dry. + Bilateral large foul-smelling ulcerations over the pretibial areas with surrounding cellulitic changes and some purulent drainage with granulation tissue noted in wound beds R>L noted during previous exam, dressings C/D/I, did not remove. s/p I&D, in postop dressing, C/D/I, did not remove. Able to wiggle toes on both feet. N/V intact distally. + Pruritic scaly rash over lower cleavage area. HEAD: Atraumatic. Normocephalic. No temporal or scalp tenderness. EYES: Pupils equal round and reactive. Extraocular motions intact. No scleral icterus. No injection or drainage. ENT: Nose without bleeding or purulent drainage. Throat without erythema, tonsillar hypertrophy or exudate. Uvula midline. Airway patent. NECK: Trachea midline. No lymphadenopathy. Supple, nontender, no meningeal signs. CARDIOVASCULAR: Regular rate and rhythm without murmurs, gallops, or rubs. RESPIRATORY: Clear to auscultation. Breath sounds equal bilaterally. No wheezes , rales, or rhonchi. GASTROINTESTINAL: Abdomen soft, non-tender, nondistended. No hepato-splenomegaly , or palpable masses. No guarding. MUSCULOSKELETAL: Extremities without clubbing, cyanosis, or edema. No joint tenderness, effusion, or edema noted. No calf tenderness. + Varicosities bilateral lower extremities. NEUROLOGICAL: Awake and alert. Cranial nerves II through XII grossly intact. Motor and sensory grossly within normal limits. No focal neurologic finding appreciated. Normal speech. PSYCHIATRIC: Appropriate mood and affect. Calm and pleasant. Cooperative with exam. PIV site with no evidence of infection (Nieves Malik) Assessment & Plan Remarks Bilateral lower extremity cellulitis with open wounds/ulcerations -Wound cx + E coli, proteus mirabilis, group D enterococcus, staph Tinea corporis Anemia,mild HgbA1c 6.3 ?diabetic SABRA, creatinine up to 1.25, improving Recommendations: Continue on IV Zosyn and IV Vancomycin for now. Continue to monitor kidney function Follow-up on wound culture sensitivities until finalized Add Lactobacillus. Monitor for recurrence of diarrhea. Monitor for clinical improvement Further recommendations to follow (Nieves Malik) Remarks The exam, history, and the medical decision-making described in the above note were completed with the assistance of the mid-level provider. I reviewed and agree with the findings presented. I attest that I had a [id number] encounter with the patient on the same day, and personally performed and documented my assessment and findings in the medical record. Bilateral feet in Pérez boots managed by wound care. dw Micro await susceptibility testing results on Staph and Enterococcus. Continue ZOsyn IV Continue Vanco IV (target 10-15) Follow cultures Follow clinically. to cover for me 04/15/2018 to 04/17/2018. (Shaunna Georges MD) Nieves Malik April 14, 2018 10:25 Shaunna Georges MD April 14, 2018 13:25
[2018-04-14 12:01] VITALS: BP 158/70; PULSE 54; RESP 17; TEMP 98.7; O2SAT 95
[2018-04-14 15:58] VITALS: BP 163/74; PULSE 54; RESP 17; TEMP 99.3; O2SAT 99
--- NOTE | 2018-04-14 17:08 | PD.WCN.NOT ---
Wound Consult Description: Received consult from Doctor Marlow for BL distal legs. Please apply Unna boots every 3-5 days Communicated with: Recommendation: 1.RN to leave Pérez boots in place. Wound care nurse will change Pérez boots every 3 to 5 days while patient is in hospital. 2. Will cleanse wounds with normal saline and pat dry and apply optilock over draining wounds before applying pérez boots Additional Information: Patient was seen on [address] by feature writer for Pérez boot dressing change to bilateral lower extremities.Patient alert and oriented x4 in bed with lower extremities elevated on pillow. Wound to LLE is located on matthew and measures ~5cm x ~4cm x~0.2cm. Wound bed is noted with 90% red non granulation tissue and ~10% thin yellow tissue. Wound bed is moist with minimal active sero-sanguinous drainage that is without odor. Wound margins are well defined and sharp.Wound was cleansed with normal saline and patted dry. Applied Optilock dressing in place, for wound drainage before applying pérez boot. Removed Previous pérez boot to RLE to reveal wound to R matthew that measures ~5cm x ~6cm x ~0.2cm. Wound presents with ~95% red non granulation tissue and ~5 % thin yellow tissue. Wound drainage is minimal and sero-sanguinous without odor.Periwound presents with erythema and edema that appears to be resolving. Wound margins are sharp and well defined. Cleansed wound with normal saline and patted dry. Covered wound with Optilock dressing for wound drainage before applying Pérez boot.Patient tolerated procedure well. Neg Pressure Wound Therapy Wound Location Wound Location: Received consult from Doctor Marlow for BL distal legs. Please apply Unna boots every 3 days Marya Reynoso [facility] April 14, 2018 17:08
[2018-04-14 20:00] VITALS: BP 144/70; PULSE 56; RESP 18; TEMP 98.4; O2SAT 96
[2018-04-14] MEDS: LACTOBACILLUS ACIDOPHILUS TAB PO SCH (20:37)
[2018-04-15] VITALS: BP 136/100; PULSE 81; RESP 18; TEMP 98.2; O2SAT 16
[2018-04-15] MEDS: PIPERACIL-TAZO 3.375 GM PREMIX 50 ML IV SCH (02:37)
[2018-04-15] MEDS: ACETAMINOPHEN/HYDROcodone 325 MG/5 MG TAB PO PRN ×2 (03:00→20:28)
[2018-04-15 04:00] VITALS: BP 139/62; PULSE 52; RESP 16; TEMP 97.8; O2SAT 94
[2018-04-15] MEDS: VANCOMYCIN INJ 1,500 MG in SODIUM CHLORID 0.9% 500 ML INJ 500 ML IV SCH (05:04)
[2018-04-15] MEDS: LACTOBACILLUS ACIDOPHILUS TAB PO SCH ×2 (07:44→23:31)
[2018-04-15] MEDS: ENOXAPARIN SODIUM 40 MG/0.4 ML SYRINGE SQ SCH (07:45)
[2018-04-15] MEDS: ACETAMINOPHEN/HYDROcodone 325 MG/10 MG TAB PO PRN (07:48)
[2018-04-15 08:00] VITALS: BP 158/72; PULSE 55; RESP 20; TEMP 97.1; O2SAT 97
[2018-04-15] MEDS: KETOCONAZOLE 2% CREAM 15 GM TOPICAL SCH (09:00)
[2018-04-15] MEDS: AMPICILLIN-SULBACTAM INJ 1,500 MG in SODIUM CHLORIDE 0.9% INJ 100 ML IV SCH ×3 (09:21→20:21)
--- NOTE | 2018-04-15 11:25 | HHI.PR ---
Subjective Remarks Patient in bed says still with pain in her legs. No fever overnight. Had loose stool today. Objective Vitals Vital Signs Date Time Temp Pulse Resp B/P (MAP) Pulse Ox O2 Delivery O2 Flow Rate FiO2 04/15/18 08:00 97.1 55 20 158/72 (100) 97 04/15/18 05:29 Room Air 04/15/18 04:00 97.8 52 16 139/62 (87) 94 04/15/18 00:00 98.2 81 18 136/100 (112) 16 04/14/18 21:54 Room Air 04/14/18 20:00 98.4 56 18 144/70 (94) 96 04/14/18 17:44 18 04/14/18 15:58 99.3 54 17 163/74 (103) 99 04/14/18 12:01 98.7 54 17 158/70 (99) 95 I/O 04/14/18 04/14/18 04/14/18 04/15/18 04/15/18 04/15/18 07:00 15:00 23:00 07:00 15:00 23:00 Intake Total 450 ml 1010 ml 790 ml Balance 450 ml 1010 ml 790 ml Intake Oral 450 ml 960 ml 240 ml IV Total 50 ml 550 ml # Voids 6 3 3 # Bowel Movements 0 Result Diagram: 04/11/18 0519 04/14/18 0530 Imaging Last Impressions Lower Extremity MRI 04/09/18 0000 Signed Impressions: Service Date/Time: Monday, April 09, 2018 09:53 - CONCLUSION: Soft tissue wound with extensive cellulitis or varicosities. Laboratory changes do extend to the cortical surface of the distal tibia. Careful followup is suggested to exclude developing osteomyelitis.. Derek Zepeda MD FACR Lower Extremity Ultrasound 04/08/18 192 Signed Impressions: Service Date/Time: Sunday, April 08, 2018 20:15 - CONCLUSION: Normal examination. Fercho Vickers MD Tibia/Fibula X-Ray 04/08/18 0000 Signed Impressions: Service Date/Time: Sunday, April 08, 2018 19:35 - CONCLUSION: Soft tissue findings. No definite acute bony findings Fercho Vickers MD Objective Remarks GENERAL: This is a well-nourished, well-developed patient, in no apparent distress. CARDIOVASCULAR: Regular rate and rhythm without murmurs, gallops, or rubs. RESPIRATORY: Clear to auscultation. Breath sounds equal bilaterally. No wheezes , rales, or rhonchi. GASTROINTESTINAL: Abdomen soft, non-tender, nondistended. No hepato-splenomegaly , or palpable masses. No guarding. MUSCULOSKELETAL: Extremities without clubbing, cyanosis, or edema. No joint tenderness, effusion, or edema noted. No calf tenderness. Negative Homans sign bilaterally. NEUROLOGICAL: Awake and alert. Cranial nerves II through XII intact. Motor and sensory grossly within normal limits. Five out of 5 muscle strength in all muscle groups. Normal speech. Procedures S/P bilateral leg excisional debridement 04/10/[address] Marlow podiatry A/P Problem List: (1) Infected ulcer of skin ICD Code: L98.499 - Non-pressure chronic ulcer of skin of other sites with unspecified severity; L08.9 - Local infection of the skin and subcutaneous tissue, unspecified Status: Acute Assessment and Plan Infected wounds, cellulitis bilateral legs- was treated with oral antibiotics twice without any significant improvement Continue IV antibiotics vancomycin and Zosyn consult ID and wound care- continue with pain control. Follow cultures. Consult podiatry ff, Dr. Marlow. S/P bilateral leg excisional debridement by Dr Marlow podiatry Also seen by infectious disease, appreciate recommendations [place] for pain pain meds adjusted. DC ketorolac for breakthrough pain as patient noted with worsening kidney function . Pain meds adjusted. Anemia- likely due to chronic disease- monitor H/H, transfuse of HGB < 7 or if symptomatic. 9. Kidney function is worsening. Avoid nephrotoxins. Discontinue ketorolac. DVT prophylaxis: Lovenox SQ Discussed Condition With nurse, patient. DC when improved and cleared by ID and podiatry. Bozena Chamberlain MD April 15, 2018 11:25
[2018-04-15 12:00] VITALS: BP 153/76; PULSE 59; RESP 20; TEMP 97.9; O2SAT 96
[2018-04-15 16:00] VITALS: BP 140/62; PULSE 57; RESP 20; TEMP 98; O2SAT 97
[2018-04-15 20:00] VITALS: BP 106/50; PULSE 63; RESP 20; TEMP 98.2; O2SAT 98
[2018-04-16] VITALS: BP 111/63; PULSE 60; RESP 16; TEMP 98; O2SAT 96
[2018-04-16] MEDS: AMPICILLIN-SULBACTAM INJ 1,500 MG in SODIUM CHLORIDE 0.9% INJ 100 ML IV SCH ×4 (03:42→21:58)
[2018-04-16] MEDS: ACETAMINOPHEN/HYDROcodone 325 MG/5 MG TAB PO PRN ×3 (03:59→21:58)
[2018-04-16 04:00] VITALS: BP 142/63; PULSE 52; RESP 16; TEMP 98.1; O2SAT 98
[2018-04-16] MEDS ORDERED: PHARMACY ORDERED LAB ONE (05:45)
[2018-04-16 08:00] VITALS: BP 140/64; PULSE 53; RESP 20; TEMP 98.2; O2SAT 97
[2018-04-16] MEDS: ENOXAPARIN SODIUM 40 MG/0.4 ML SYRINGE SQ SCH (08:42)
[2018-04-16] MEDS: LACTOBACILLUS ACIDOPHILUS TAB PO SCH ×2 (08:42→21:59)
[2018-04-16] MEDS: KETOCONAZOLE 2% CREAM 15 GM TOPICAL SCH (08:55)
[2018-04-16 12:00] VITALS: BP 129/60; PULSE 60; RESP 20; TEMP 97.8; O2SAT 96
--- NOTE | 2018-04-16 12:16 | HHI.PR ---
Subjective Remarks Since she feels fine today still with significant pain in her legs. Dressings are noted with some discharge. Plan to change dressing today will call wound care nurse. No fever or chills. No more diarrhea stool is formed. No abdominal cramps. Objective Vitals Vital Signs Date Time Temp Pulse Resp B/P (MAP) Pulse Ox O2 Delivery O2 Flow Rate FiO2 04/16/18 08:00 98.2 53 20 140/64 (89) 97 04/16/18 05:46 Room Air 04/16/18 04:00 98.1 52 16 142/63 (89) 98 04/16/18 00:00 98.0 60 16 111/63 (79) 96 04/15/18 20:00 98.2 63 20 106/50 (68) 98 04/15/18 20:00 Room Air 04/15/18 16:00 98.0 57 20 140/62 (88) 97 I/O 04/15/18 04/15/18 04/15/18 04/16/18 04/16/18 04/16/18 06:59 14:59 22:59 06:59 14:59 22:59 Intake Total 790 ml 600 ml 290 ml Balance 790 ml 600 ml 290 ml Intake Oral 240 ml 600 ml 240 ml IV Total 550 ml 50 ml # Voids 3 3 3 # Bowel Movements 1 1 Result Diagram: 04/14/18 0530 Objective Remarks GENERAL: This is a well-nourished, well-developed patient, in no apparent distress. SKIN: Bilateral legs with wound dressing with some discharge. CARDIOVASCULAR: Regular rate and rhythm without murmurs, gallops, or rubs. RESPIRATORY: Clear to auscultation. Breath sounds equal bilaterally. No wheezes , rales, or rhonchi. GASTROINTESTINAL: Abdomen soft, non-tender, nondistended. No hepato-splenomegaly , or palpable masses. No guarding. MUSCULOSKELETAL: Extremities without clubbing, cyanosis, or edema. No joint tenderness, effusion, or edema noted. No calf tenderness. Negative Homans sign bilaterally. NEUROLOGICAL: Awake and alert. Cranial nerves II through XII intact. Motor and sensory grossly within normal limits. Five out of 5 muscle strength in all muscle groups. Normal speech. Procedures S/P bilateral leg excisional debridement 04/10/[address] Marlow podiatry A/P Problem List: (1) Infected ulcer of skin ICD Code: L98.499 - Non-pressure chronic ulcer of skin of other sites with unspecified severity; L08.9 - Local infection of the skin and subcutaneous tissue, unspecified Status: Acute Assessment and Plan Infected wounds, cellulitis bilateral legs- was treated with oral antibiotics twice as OP without any significant improvement Continue IV antibiotics vancomycin and Zosyn consult ID and wound care- continue with pain control. Follow cultures. Consult podiatry ff, Dr. Marlow. S/P bilateral leg excisional debridement by Dr Marlow podiatry Also seen by infectious disease, appreciate recommendations [place] for pain pain meds adjusted. DC ketorolac for breakthrough pain as patient noted with worsening kidney function . Pain meds adjusted. Anemia- likely due to chronic disease- monitor H/H, transfuse of HGB < 7 or if symptomatic. 9. Kidney function is worsening. Avoid nephrotoxins. Discontinue ketorolac. DVT prophylaxis: Lovenox SQ Discussed Condition With nurse, patient. DC when improved and cleared by ID and podiatry. Bozena Chamberlain MD April 16, 2018 12:16
[2018-04-16] MEDS: ACETAMINOPHEN/HYDROcodone 325 MG/10 MG TAB PO PRN (13:07)
[2018-04-16 16:00] VITALS: BP 135/62; PULSE 56; RESP 20; TEMP 97.8; O2SAT 99
[2018-04-16 20:00] VITALS: BP 151/67; PULSE 60; RESP 20; TEMP 98.5; O2SAT 98
[2018-04-17] VITALS: BP 134/70; PULSE 60; RESP 19; TEMP 97.8; O2SAT 98
[2018-04-17 04:00] VITALS: BP 154/64; PULSE 55; RESP 19; TEMP 97.9; O2SAT 98
[2018-04-17] MEDS: AMPICILLIN-SULBACTAM INJ 1,500 MG in SODIUM CHLORIDE 0.9% INJ 100 ML IV SCH ×4 (04:19→22:03)
[2018-04-17 08:00] VITALS: BP 154/71; PULSE 54; RESP 15; TEMP 98; O2SAT 96
--- NOTE | 2018-04-17 08:57 | HHI.PR ---
Subjective Remarks Her legs. Dressings were changed yesterday now they are dry and clean. Patient without fever or chills overnight. No more diarrhea. No fever or chills. Objective Vitals Vital Signs Date Time Temp Pulse Resp B/P (MAP) Pulse Ox O2 Delivery O2 Flow Rate FiO2 04/17/18 04:00 97.9 55 19 154/64 (94) 98 04/17/18 00:00 97.8 60 19 134/70 (91) 98 04/16/18 20:15 Room Air 04/16/18 20:00 98.5 60 20 151/67 (95) 98 04/16/18 16:00 97.8 56 20 135/62 (86) 99 04/16/18 12:00 97.8 60 20 129/60 (83) 96 I/O 04/16/18 04/16/18 04/16/18 04/17/18 04/17/18 04/17/18 07:00 15:00 23:00 07:00 15:00 23:00 Intake Total 290 ml 600 ml 120 ml Output Total 250 ml Balance 290 ml 600 ml -130 ml Intake Oral 240 ml 600 ml 120 ml IV Total 50 ml Output Urine Total 250 ml # Voids 3 3 # Bowel Movements 1 1 0 Result Diagram: 04/14/18 0530 Imaging Last Impressions Lower Extremity MRI 04/09/18 0000 Signed Impressions: Service Date/Time: Monday, April 09, 2018 09:53 - CONCLUSION: Soft tissue wound with extensive cellulitis or varicosities. Laboratory changes do extend to the cortical surface of the distal tibia. Careful followup is suggested to exclude developing osteomyelitis.. Derke Zepeda MD FACR Lower Extremity Ultrasound 04/08/18 192 Signed Impressions: Service Date/Time: Sunday, April 08, 2018 20:15 - CONCLUSION: Normal examination. Fercho Vickers MD Tibia/Fibula X-Ray 04/08/18 0000 Signed Impressions: Service Date/Time: Sunday, April 08, 2018 19:35 - CONCLUSION: Soft tissue findings. No definite acute bony findings Fercho Vickers MD Objective Remarks GENERAL: This is a well-nourished, well-developed patient, in no apparent distress. SKIN: Bilateral legs with wound dressing c/d/i. CARDIOVASCULAR: Regular rate and rhythm without murmurs, gallops, or rubs. RESPIRATORY: Clear to auscultation. Breath sounds equal bilaterally. No wheezes , rales, or rhonchi. GASTROINTESTINAL: Abdomen soft, non-tender, nondistended. No hepato-splenomegaly , or palpable masses. No guarding. MUSCULOSKELETAL: Extremities without clubbing, cyanosis, or edema. No joint tenderness, effusion, or edema noted. NEUROLOGICAL: Awake and alert. Cranial nerves II through XII intact. Motor and sensory grossly within normal limits. Five out of 5 muscle strength in all muscle groups. Normal speech. Procedures S/P bilateral leg excisional debridement 04/10/[address] Marlow podiatry A/P Problem List: (1) Infected ulcer of skin ICD Code: L98.499 - Non-pressure chronic ulcer of skin of other sites with unspecified severity; L08.9 - Local infection of the skin and subcutaneous tissue, unspecified Status: Acute Assessment and Plan Infected wounds, cellulitis bilateral legs- was treated with oral antibiotics twice as OP without any significant improvement Continue IV antibiotics vancomycin and Zosyn consult ID and wound care- continue with pain control. Follow cultures. Consult podiatry ff, Dr. Marlow. S/P bilateral leg excisional debridement by Dr Marlow podiatry Also seen by infectious disease, appreciate recommendations [place] for pain pain meds adjusted. DC ketorolac for breakthrough pain as patient noted with worsening kidney function . Pain meds adjusted. Anemia- likely due to chronic disease- monitor H/H, transfuse of HGB < 7 or if symptomatic. 9. Kidney function is worsening. Avoid nephrotoxins. Discontinue ketorolac. DVT prophylaxis: Lovenox SQ Discussed Condition With nurse, patient. DC when improved and cleared by ID and podiatry. Bozena Chamberlain MD April 17, 2018 08:57
[2018-04-17] MEDS: KETOCONAZOLE 2% CREAM 15 GM TOPICAL SCH (09:00)
[2018-04-17] MEDS: LACTOBACILLUS ACIDOPHILUS TAB PO SCH ×2 (09:19→22:03)
[2018-04-17] MEDS: ENOXAPARIN SODIUM 40 MG/0.4 ML SYRINGE SQ SCH (09:20)
[2018-04-17] MEDS: ACETAMINOPHEN/HYDROcodone 325 MG/5 MG TAB PO PRN ×2 (11:38→22:03)
[2018-04-17 12:00] VITALS: BP 139/63; PULSE 62; RESP 16; TEMP 98.1; O2SAT 97
--- NOTE | 2018-04-17 14:59 | PD.WCN.NOT ---
Wound Consult Description: Received consult from Doctor Marlow for BL distal legs. Please apply Unna boots every 3-5 days Communicated with: Rhina VELASQUEZ [address] [place] [address] Recommendation: 1.RN to leave Pérez boots in place. Wound care nurse will change Pérez boots every 3 to 5 days while patient is in hospital. 2. Will cleanse wounds with normal saline and pat dry and apply optilock over draining wounds before applying pérez boots Additional Information: Patient was seen today by property underwriter for Pérez boot change.Bilateral lower extremity Pérez boots removed with out difficulty lower extremities /wounds cleansed with normal saline pat dry .Right lower extremity venous ulcer measures 4.8cm x5.0cm x <0.1cm wound base is 100% beefy red granulated tissue with scant serosanguineous drainage noted.Periwound intact wound edges are well defined and even with wound base.left lower extremity venous ulcer measures 3.8cm x4.0cm x <0.1cm wound base is 90% beefy red granulated tissue and 10% white tissue.Wound edges are well defined and even with wound base.Scant serosanguineous drainage noted without odor.Wounds cleansed with normal saline pat dry wounds covered with Opti lock and Pérez boots applied with out difficulty.Sign and dated . Neg Pressure Wound Therapy Wound Location Wound Location: Received consult from Doctor Marlow for BL distal legs. Please apply Unna boots every 3-5 days [facility] April 17, 2018 14:59
[2018-04-17 16:00] VITALS: BP 136/61; PULSE 59; RESP 16; TEMP 97.8; O2SAT 97
[2018-04-17 20:00] VITALS: BP 140/62; PULSE 60; RESP 20; TEMP 98.3; O2SAT 95
[2018-04-18] VITALS: BP 130/59; PULSE 55; RESP 20; TEMP 97.7; O2SAT 93
[2018-04-18 04:00] VITALS: BP 134/60; PULSE 59; RESP 19; TEMP 97.2; O2SAT 96
[2018-04-18] MEDS: AMPICILLIN-SULBACTAM INJ 1,500 MG in SODIUM CHLORIDE 0.9% INJ 100 ML IV SCH ×3 (04:00→15:16)
[2018-04-18 08:00] VITALS: BP 151/67; PULSE 54; RESP 18; TEMP 97.7; O2SAT 97
[2018-04-18] MEDS: ENOXAPARIN SODIUM 40 MG/0.4 ML SYRINGE SQ SCH (09:07)
[2018-04-18] MEDS: LACTOBACILLUS ACIDOPHILUS TAB PO SCH ×2 (09:07→22:10)
[2018-04-18] MEDS: ACETAMINOPHEN/HYDROcodone 325 MG/10 MG TAB PO PRN ×3 (09:08→22:10)
[2018-04-18] MEDS: KETOCONAZOLE 2% CREAM 15 GM TOPICAL SCH (10:09)
[2018-04-18 12:00] VITALS: BP 164/67; PULSE 64; RESP 20; TEMP 98.5; O2SAT 94
--- NOTE | 2018-04-18 15:05 | HHI.PR ---
Subjective Remarks She says she is feeling well. Reports pain is under control. Denies any chest pain shortness of breath. Denies nausea or vomiting. Denies constipation. Objective Vital Signs Date Time Temp Pulse Resp B/P (MAP) Pulse Ox O2 Delivery O2 Flow Rate FiO2 04/18/18 12:00 98.5 64 20 164/67 (99) 94 04/18/18 08:00 97.7 54 18 151/67 (95) 97 04/18/18 04:00 97.2 59 19 134/60 (84) 96 04/18/18 00:00 97.7 55 20 130/59 (82) 93 04/17/18 23:03 18 04/17/18 20:15 Room Air 04/17/18 20:00 98.3 60 20 140/62 (88) 95 04/17/18 16:00 Room Air 04/17/18 16:00 97.8 59 16 136/61 (86) 97 I/O 04/17/18 04/17/18 04/17/18 04/18/18 04/18/18 04/18/18 07:00 15:00 23:00 07:00 15:00 23:00 Intake Total 120 ml 600 ml 0 ml Output Total 250 ml Balance -130 ml 600 ml 0 ml Intake Oral 120 ml 600 ml 0 ml Output Urine Total 250 ml # Voids 4 1 # Bowel Movements 0 1 0 Result Diagram: 04/14/18 0530 Objective Remarks GENERAL: Patient sitting up in bed. Appears comfortable. Alert and oriented 3. SKIN: Warm and dry. HEAD: Normocephalic. EYES: No scleral icterus. No injection or drainage. NECK: Supple, trachea midline. No JVD . CARDIOVASCULAR: Regular rate and rhythm without murmurs, gallops, or rubs. RESPIRATORY: Breath sounds equal bilaterally. No accessory muscle use. GASTROINTESTINAL: Abdomen soft, non-tender, nondistended. MUSCULOSKELETAL: No cyanosis. Bilateral wraps. Peripheral perfusion intact. BACK: Nontender without obvious deformity. No CVA tenderness. A/P Assessment and Plan //Infected wounds, cellulitis bilateral legs- was treated with oral antibiotics twice as OP without any significant improvement Continue IV antibiotics vancomycin and Zosyn consult ID and wound care- continue with pain control. Follow cultures. Consult podiatry ff, Dr. Ele. S/P bilateral leg excisional debridement by Dr Marlow podiatry Also seen by infectious disease, appreciate recommendations [place] for pain pain meds adjusted. DC ketorolac for breakthrough pain as patient noted with worsening kidney function . Pain meds adjusted. = Continue antibiotics as per ID, management as per podiatry. //Anemia- likely due to chronic disease- monitor H/H, transfuse of HGB < 7 or if symptomatic. //impaired Kidney function. Avoid nephrotoxins. Discontinue ketorolac. //DVT prophylaxis: Lovenox SQ Discharge Planning Pending ID and podiatry clearance. Jhonny Oates MD April 18, 2018 15:05
[2018-04-18 16:00] VITALS: BP_SYST 154; BP_DIAS 60; BP_DIAS 74; PULSE 60; PULSE 94; RESP 18; RESP 20; TEMP 98; TEMP 98.1; O2SAT 95; O2SAT 97
--- NOTE | 2018-04-18 18:57 | HHI.IDPN ---
Subjective Subjective Remarks This is a very pleasant 58-year-old Iranian female who denies any significant past medical history and presented to [facility] ED with complaints of progressive bilateral lower extremity leg wounds 8 months. Patient states that 8 months ago she was bitten by ants on the right lower leg and began to develop an infection. Shortly thereafter, she developed similar wounds on the front of the lower left leg however she does not recall being bit by ants or having any other type of bite or injury. Patient states the both leg wounds have been progressive with increase in size and becoming more painful. Patient states she has been treated twice at [facility] in [place] in October and November with oral antibiotics the names of which she cannot recall without any significant improvement. Patient states she came in today because leg wounds have become so painful that her home use of ibuprofen is no longer giving her any relief. Patient denies any known history of immunocompromised state. She is not on any steroids. She denies any past medical history of diabetes. She denies any history of similar infections in the past. She denies any history of HIV or hepatitis. Infectious disease consultation has been requested for evaluation and management of bilateral leg wounds. Patient is seen and examined. She denies any other associated symptoms such as fever, chills, nausea, vomiting, chest pain, shortness of breath, abdominal pain, dysuria or diarrhea. Currently she is afebrile. Her white count is within normal limits. Blood cultures and wound cultures are pending. Bilateral lower extremity Dopplers were negative for DVT. X-ray of the right lower extremity revealed soft tissue swelling and a irregularity involving the medial distal matthew region with the underlying tibia notable for mild undulating periosteal reaction worrisome for underlying osteomyelitis. X-ray of the left lower extremity shows soft tissue findings no definite acute bony findings. She does have hardware in the lower extremity as a result of ORIF repair of ankle fracture. She is comfortable at present. She states that she decided to come in to the hospital at this time due to the fact that the leg wounds are becoming more painful and that her home use of ibuprofen is no longer giving her any relief. Patient denies any known history of immunocompromised state. She is not on any steroids. She denies any past medical history of diabetes. She denies any history of similar infections in the past. She denies any history of HIV or hepatitis. Notes reviewed Op note reviewed - s/p I&D bilateral ulcers by Dr. Marlow 04/10 Post op was undergoing wound care with Unaboots. BLE pain controlled no fever or chills no rash no dysuria afebrile Wound cx + E coli, proteus mirabilis, group D enterococcus, staph s/p 10 days of antibiotics today. Antibiotics Unaysn IV Lines PIV with no e/o infection Past Medical History None Allergies: Coded Allergies: No Known Allergies (Unverified , 04/10/18) Objective . Vital Signs Date Time Temp Pulse Resp B/P (MAP) Pulse Ox O2 Delivery O2 Flow Rate FiO2 04/18/18 16:00 98.0 60 20 154/60 (91) 95 04/18/18 12:00 98.5 64 20 164/67 (99) 94 04/18/18 08:00 97.7 54 18 151/67 (95) 97 04/18/18 04:00 97.2 59 19 134/60 (84) 96 04/18/18 00:00 97.7 55 20 130/59 (82) 93 04/17/18 23:03 18 04/17/18 20:15 Room Air 04/17/18 20:00 98.3 60 20 140/62 (88) 95 04/18/18 04/18/18 04/19/18 15:00 23:00 07:00 Intake Total 480 ml Balance 480 ml Intake Oral 480 ml # Voids 4 # Bowel Movements 1 Imaging Last Impressions Lower Extremity MRI 04/09/18 0000 Signed Impressions: Service Date/Time: Monday, April 09, 2018 09:53 - CONCLUSION: Soft tissue wound with extensive cellulitis or varicosities. Laboratory changes do extend to the cortical surface of the distal tibia. Careful followup is suggested to exclude developing osteomyelitis.. Derek Zepeda MD FACR Lower Extremity Ultrasound 04/08/181927 Signed Impressions: Service Date/Time: Sunday, April 08, 2018 20:15 - CONCLUSION: Normal examination. Fercho Vickers MD Tibia/Fibula X-Ray 04/08/18 0000 Signed Impressions: Service Date/Time: Sunday, April 08, 2018 19:35 - CONCLUSION: Soft tissue findings. No definite acute bony findings Fercho Vickers MD Physical Exam GENERAL: This is a well-nourished, well-developed female patient, in no apparent distress. Awake and alert. Sitting up in bed. SKIN: Warm and dry. HEAD: Atraumatic. Normocephalic. No temporal or scalp tenderness. EYES: Pupils equal round and reactive. Extraocular motions intact. No scleral icterus. No injection or drainage. ENT: Nose without bleeding or purulent drainage. Throat without erythema, tonsillar hypertrophy or exudate. Uvula midline. Airway patent. NECK: Trachea midline. No lymphadenopathy. Supple, nontender, no meningeal signs. CARDIOVASCULAR: Regular rate and rhythm without murmurs, gallops, or rubs. RESPIRATORY: Clear to auscultation. Breath sounds equal bilaterally. No wheezes , rales, or rhonchi. GASTROINTESTINAL: Abdomen soft, non-tender, nondistended. MUSCULOSKELETAL: Bilateral LE in unaboots. When opened the wound based looked clean with good bleeding noted. No hypergranulation tissue noted. No surrounding erythema noted. NEUROLOGICAL: Awake and alert. Cranial nerves II through XII grossly intact. Motor and sensory grossly within normal limits. No focal neurologic finding appreciated. Normal speech. PSYCHIATRIC: Appropriate mood and affect. Calm and pleasant. Cooperative with exam. PIV site with no evidence of infection Assessment & Plan Remarks Bilateral lower extremity cellulitis with open wounds/ulcerations -Wound cx + E coli, proteus mirabilis, group D enterococcus, staph Tinea corporis Anemia,mild HgbA1c 6.3 ?diabetic SABRA, creatinine up to 1.25, improving Recommendations: DC Unasyn IV s/p 10 days of antibiotics. Continue wound care. Continue Lactobacillus. Wound reviewed with RON Seay of wound care. Appreciate help Will sign off please call back if any change in clinical condition or questions. Shaunna Georges MD April 18, 2018 18:57
--- NOTE | 2018-04-18 19:52 | PD.WCN.NOT ---
Wound Consult Description: Patient seen for follow up of Pérez boots and dressing change to BLE Communicated with: CRCindy Malhotra, and Doctor Marlow Recommendation: Please leave dressing in place for 1 week. Please follow up with the out patient wound center Doctor Jaja per verbal order from Doctor Marlow after discharge from hospital May change outer dressings PRN if soiled or saturated, but leave puracol AG in place for 1 week Dressing applied as follows: Cleansed wounds to BLE with normal saline and patted dry. Applied Puracol AG to open wounds and covered with dry 4x4 gauze pads, ABD pad, secured with rolled gauze and simona wrap. Additional Information: Patient seen on . Doctor Destini infectious disease in room during Pérez boot removal to BLE. Wound to RLE presents with ~95% red granulated tissure and ~5 % white tissue. Wound measures ~4.3cm x ~6cm x ~0.1cm. Wound drainage is minimal and sero-sanguinous without odor. Periwound is unremarkable. LLE wound presents with 100% red granulation tissue that is without odor and minimal sanguinous drainage.LLE wound measures ~4cm x ~3cm x ~0.1cm Wounds were cleansed with normal saline and patted dry. Applied puracol AG just over open wound beds and covered with dry 4x4 gauze pads, secured with ABD pad, rolled gauze and SIMONA wrap. Patient tolerated procedure well. Geena Llanos [facility] April 18, 2018 19:52
[2018-04-18 20:00] VITALS: BP 135/65; PULSE 65; RESP 20; TEMP 98.1; O2SAT 95
[2018-04-19] VITALS: BP 137/60; PULSE 60; RESP 20; TEMP 98.1; O2SAT 95
[2018-04-19 04:00] VITALS: BP 142/65; PULSE 54; RESP 20; TEMP 97.6; O2SAT 97
[2018-04-19] MEDS: ACETAMINOPHEN/HYDROcodone 325 MG/10 MG TAB PO PRN ×2 (04:57→14:04)
[2018-04-19 05:34] LABS: AUTOMATED NEUTROPHIL # 3.4 TH/MM3 (1.8-7.7); BASOPHIL # 0.1 TH/MM3 (0-0.2); BASOPHIL % 1.1 % (0.0-2.0); EOSINOPHIL # 0.1 TH/MM3 (0-0.4); EOSINOPHIL % 2.2 % (0.0-4.0); HEMATOCRIT 36.3 % (35.0-46.0); HEMOGLOBIN 11.9 GM/DL (11.6-15.3); LYMPH % 38.6 % (9.0-44.0); LYMPHOCYTE # 2.6 TH/MM3 (1.0-4.8); MEAN CELL VOLUME 78.1 FL (80.0-100.0); MEAN CORPUSCULAR HEMOGLOBIN 25.7 PG (27.0-34.0); MEAN CORPUSCULAR HGB CONC 32.9 % (32.0-36.0); MONO % 7.3 % (0.0-8.0); MONOCYTE # 0.5 TH/MM3 (0-0.9); NEUT % 50.8 % (16.0-70.0); PLATELET COUNT 219 TH/MM3 (150-450); RED BLOOD COUNT 4.65 MIL/MM3 (4.00-5.30); RED CELL DISTRIBUTION WIDTH 14.4 % (11.6-17.2); WHITE BLOOD COUNT 6.7 TH/MM3 (4.0-11.0)
[2018-04-19 05:53] LABS: ALBUMIN 3.3 GM/DL (3.4-5.0); BICARBONATE 29.4 MEQ/L (21.0-32.0); CALCIUM 9.4 MG/DL (8.5-10.1); CREATININE 1.1 MG/DL (0.50-1.00); MAGNESIUM 2.4 MG/DL (1.5-2.5); PHOSPHORUS 4.1 MG/DL (2.5-4.9)
[2018-04-19] MEDS: ENOXAPARIN SODIUM 40 MG/0.4 ML SYRINGE SQ SCH (08:34)
[2018-04-19] MEDS: LACTOBACILLUS ACIDOPHILUS TAB PO SCH (08:34)
[2018-04-19] MEDS: KETOCONAZOLE 2% CREAM 15 GM TOPICAL SCH (08:34)
--- NOTE | 2018-04-19 10:42 | HHI.PR ---
Subjective Remarks Patient says she is feeling well. Reports pain is under control. Denies any chest pain or shortness of breath. Feels like going home. Objective Vital Signs Date Time Temp Pulse Resp B/P (MAP) Pulse Ox O2 Delivery O2 Flow Rate FiO2 04/19/18 04:00 97.6 54 20 142/65 (90) 97 04/19/18 00:00 98.1 60 20 137/60 (85) 95 04/18/18 21:10 96 Room Air 04/18/18 20:00 98.1 65 20 135/65 (88) 95 04/18/18 16:00 98.0 60 20 154/60 (91) 95 04/18/18 12:00 98.5 64 20 164/67 (99) 94 I/O 04/18/18 04/18/18 04/18/18 04/19/18 04/19/18 04/19/18 07:00 15:00 23:00 07:00 15:00 23:00 Intake Total 0 ml 480 ml Balance 0 ml 480 ml Intake Oral 0 ml 480 ml # Voids 1 4 # Bowel Movements 0 1 Result Diagram: 04/19/18 0456 04/19/18 0456 Objective Remarks GENERAL: Patient sitting up in bed. Appears comfortable. Alert and oriented 3. Exam unchanged. SKIN: Warm and dry. HEAD: Normocephalic. EYES: No scleral icterus. No injection or drainage. NECK: Supple, trachea midline. No JVD . CARDIOVASCULAR: Regular rate and rhythm without murmurs, gallops, or rubs. RESPIRATORY: Breath sounds equal bilaterally. No accessory muscle use. GASTROINTESTINAL: Abdomen soft, non-tender, nondistended. MUSCULOSKELETAL: No cyanosis. Bilateral wraps. Peripheral perfusion intact. BACK: Nontender without obvious deformity. No CVA tenderness. A/P Assessment and Plan //Infected wounds, cellulitis bilateral legs- was treated with oral antibiotics twice as OP without any significant improvement Continue IV antibiotics vancomycin and Zosyn consult ID and wound care- continue with pain control. Follow cultures. Consult podiatry ff, Dr. Marlow. S/P bilateral leg excisional debridement by Dr Marlow podiatry Also seen by infectious disease, appreciate recommendations [place] for pain pain meds adjusted. DC ketorolac for breakthrough pain as patient noted with worsening kidney function . Pain meds adjusted. = Patient completed antibiotics by ID. Patient is to follow-up with wound care as outpatient. //Anemia- likely due to chronic disease- monitor H/H, transfuse of HGB < 7 or if symptomatic. Stable and improving. //impaired Kidney function. Avoid nephrotoxins. Discontinue ketorolac. //DVT prophylaxis: Lovenox SQ Discharge Planning Discharge home to follow-up with wound care as outpatient. Jhonny Oates MD April 19, 2018 10:41
[2018-04-19] MEDS ORDERED: HYDR-3516 PO (10:44)
--- NOTE | 2018-04-19 10:51 | HHI.DS ---
Discharge Summary Admission Date April 08, 2018 at 20:39 Discharge Date: April 19, 2018 Admitting Diagnosis Lower extremity infected ulcers, cellulitis (1) Infected ulcer of skin ICD Code: L98.499 - Non-pressure chronic ulcer of skin of other sites with unspecified severity; L08.9 - Local infection of the skin and subcutaneous tissue, unspecified Diagnosis: Principal Status: Acute Procedures S/P bilateral leg excisional debridement 04/10/[address] Marlow podiatry Brief History - From Admission patient is a 58 y/o female with no significant past medical history who presented to ER with wounds on both legs. she says that it started eight months ago with an ant-bite. it started as a ' small bump'. however it gradually got worse and bigger and got infected. she was treated twice with oral antibiotics that she received in ER without any significant improvement. she denies any fever, chills. however she has some pain to the site of the wounds. due to worsening condition she decided to come to ER. CBC/BMP: 04/19/18 0456 04/19/18 0456 Significant Findings Laboratory Tests Test 04/19/18 04:56 Mean Corpuscular Volume 78.1 FL (80.0-100.0) Mean Corpuscular Hemoglobin 25.7 PG (27.0-34.0) Creatinine 1.10 MG/DL (0.50-1.00) Random Glucose 109 MG/DL (74-106) Albumin 3.3 GM/DL (3.4-5.0) Estimat Glomerular Filtration Rate 51 ML/MIN (>89) PE at Discharge GENERAL: This is a well-nourished, well-developed patient, in no apparent distress. SKIN: Bilateral legs with wound dressing c/d/i. CARDIOVASCULAR: Regular rate and rhythm without murmurs, gallops, or rubs. RESPIRATORY: Clear to auscultation. Breath sounds equal bilaterally. No wheezes , rales, or rhonchi. GASTROINTESTINAL: Abdomen soft, non-tender, nondistended. No hepato-splenomegaly , or palpable masses. No guarding. MUSCULOSKELETAL: Extremities without clubbing, cyanosis, or edema. No joint tenderness, effusion, or edema noted. NEUROLOGICAL: Awake and alert. Cranial nerves II through XII intact. Motor and sensory grossly within normal limits. Five out of 5 muscle strength in all muscle groups. Normal speech. Hospital Course Podiatry and infectious disease consulted. Wound is improved with broad- spectrum antibiotics, which were completed during inpatient admission. Podiatry debrided wounds, wound care nursing was consulted. Patient will need to follow up with wound care clinic as outpatient within 1 week. Patient is to elevate legs as much as able. For problem based summary from most recent progress note, please see below. //Infected wounds, cellulitis bilateral legs- was treated with oral antibiotics twice as OP without any significant improvement Continue IV antibiotics vancomycin and Zosyn consult ID and wound care- continue with pain control. Follow cultures. Consult podiatry ff, Dr. Marlow. S/P bilateral leg excisional debridement by Dr Marlow podiatry Also seen by infectious disease, appreciate recommendations [place] for pain pain meds adjusted. DC ketorolac for breakthrough pain as patient noted with worsening kidney function . Pain meds adjusted. = Patient completed antibiotics by ID. Patient is to follow-up with wound care as outpatient. //Anemia- likely due to chronic disease- monitor H/H, transfuse of HGB < 7 or if symptomatic. Stable and improving. //impaired Kidney function. Avoid nephrotoxins. Discontinue ketorolac. //DVT prophylaxis: Lovenox SQ Discharge Planning Discharge home to follow-up with wound care as outpatient. Pt Condition on Discharge: Good Discharge Disposition: Discharge Home Discharge Time: > 30 minutes Discharge Instructions DIET: Follow Instructions for: Heart Healthy Diet Activities you can perform: Regular-No Restrictions Follow up Referrals: PCP Follow-up - 1 Week with [facility] - 1 Week with [facility] New Medications: Hydrocodone/Acetaminophen (Hydrocodone-Acetamin 5-325 mg) 5 Mg-325 Mg Tablet 1 TAB PO Q4H PRN for PAIN SCALE 1 TO 10, #20 TAB Jhonny Oates MD April 19, 2018 10:51
== END 2018-04-19 14:46 | disposition home or self-care (01) | DRG 571 ==
LOC: NEPE 18:56 → NEDA 20:39 → N04B 21:40
PROVIDERS: ADMIT Internal Medicine; ATTEND Internal Medicine
PROC: 0JDN0ZZ Extraction of Right Lower Leg Subcutaneous Tissue and Fascia, Open Approach (ICD-10-PCS; 2018-04-10)
PROC: 0JBN0ZZ Excision of Right Lower Leg Subcutaneous Tissue and Fascia, Open Approach (ICD-10-PCS; 2018-04-10)
PROC: 0JDP0ZZ Extraction of Left Lower Leg Subcutaneous Tissue and Fascia, Open Approach (ICD-10-PCS; 2018-04-10)
PROC: 2W1RX6Z Compression of Left Lower Leg using Pressure Dressing (ICD-10-PCS; 2018-04-10)
PROC: 2W1QX6Z Compression of Right Lower Leg using Pressure Dressing (ICD-10-PCS; 2018-04-10)
PROC: 0JBP0ZZ Excision of Left Lower Leg Subcutaneous Tissue and Fascia, Open Approach (ICD-10-PCS; principal; 2018-04-10 16:24)
DX: L03.115 Cellulitis of right lower limb (principal); L03.116 Cellulitis of left lower limb; L97.218 Non-pressure chronic ulcer of right calf with other specified severity; L97.228 Non-pressure chronic ulcer of left calf with other specified severity; B96.4 Proteus (mirabilis) (morganii) as the cause of diseases classified elsewhere; B96.20 Unspecified Escherichia coli [E. coli] as the cause of diseases classified elsewhere; B95.2 Enterococcus as the cause of diseases classified elsewhere; B95.8 Unspecified staphylococcus as the cause of diseases classified elsewhere; B35.4 Tinea corporis; D63.8 Anemia in other chronic diseases classified elsewhere; I25.10 Atherosclerotic heart disease of native coronary artery without angina pectoris; N28.9 Disorder of kidney and ureter, unspecified; Z83.3 Family history of diabetes mellitus
CPT/HCPCS: 73590; 73720; 80048; 80053; 80069; 80202; 82565; 83036; 83605; 83735; 85025; 85610; 85652; 85730; 86140; 87015; 87040; 87070; 87077; 87102; 87116; 87176; 87186; 87205; 87206; 93005; 93970; 96365; A9579; J0295; J1100; J1650; J1885; J2250; J2270; J2405; J2543; J3010; J3370; J7030; J7040; J7050; J7120